=== PATIENT | male | born 1955 | race Caucasian/White ===

== ENCOUNTER 2019-07-08 08:45 | Emergency (ER) | payer OTHER ==
--- OUTSIDE RECORDS SUMMARY | 2019-07-08 09:35 | XMS REPORT | Continuity of Care Document ---
:1955 External Reference #:[id number] Author Name Francisco J Holley M.D. Address [address] [facility] [address] [place] [address] Care Team Providers Name Role Phone HCP given Care Team Information [employer] Unavailable [facility] - Cardiovascular Care Team Information [employer] Coach Disease Michael Galarza MD - Orthopaedic Care Team Information [facility] [employer] - Care Team Information [employer] Coach [phone] Gastroenterology [facility] - Surgery Care Team Information [employer] Coach [phone] Pain Clinic - Pain Medicine Care Team Information [employer] Coach [phone] Problems Active Problems Provider Date Benign essential hypertension Francisco J Holley M.D. Onset: 07/21/2011 Gout Francisco J oHlley M.D. Onset: 07/21/2011 Impaired fasting glycaemia Francisco J Holley M.D. Onset: 01/21/2012 Chronic pain syndrome Francisco J Holley M.D. Onset: 08/30/2012 Idiopathic peripheral autonomic neuropathy Francisco J Holley M.D. Onset: 08/30 Disorder of lipid metabolism Francisco J Holley M.D. Onset: 05/30/2015 Disorder of fatty acid metabolism Francisco J Holley M.D. Onset: 07/08/2015 Essential hypertension Francisco J Holley M.D. Onset: 07/08/2015 History of polyp of colon Francisco J Holley M.D. Onset: 08/01/2017 Social History Type Date Description Comments Sex Unknown Tobacco Use Start: Unknown current cigarette smoker 1ppd; started at age 22 ETOH Use Occasionally consumes alcohol "a couple of beers a week"; "used to drink like hell" until his mid 40s. Tobacco Use Start: Unknown Patient is a current smoker, smokes every day Allergies, Adverse Reactions, Alerts Description No Known Drug Allergies Medications Active Medications SIG Qnty Indications Ordering Date Provider Atorvastatin Calcium Take One Tablet By 30tabs E71.30 Silcoff, 09/08/2015 Mouth Every Day For Dex Marx 40mg Tablets High Cholesterol Fluocinonide apply a thin layer 60gm R21 Silcoff, 07/08/2015 0.05% to affected areas Dex Marx Cream on hands and wrists two times a day as needed for itch Aspirin take one tablet by 30tabs E71.30 Silcoff, 05/30/2015 81mg Tablets mouth every day for Dex Marx DR heart disease prevention; start after urinary tract infection has resolved* Ibuprofen Take One Tablet By 50tabs M25.559 Silcoalice, 03/31/2013 800mg Mouth Three Times A Dex Marx Tablets Day as Needed For Buttock And Hip Pain Fluticasone 2 sprays into each 16units J31.0 Silcoff, 02/27/2013 Propionate nostril once daily Dex Marx 50mcg/Act for nasal Suspension congestion Losartan take one tablet by 30tabs I10 Silcoff, 07/31/2012 Potassium/Hydrochlor mouth in the Dex Marx othiazide morning for high 100-25mg for blood pressure Tablets and kidney protection Oxycodone HCL 1 by mouth every 6 120tabs M25.519 Silshantal, 05/01/2012 5mg hours as needed for Dex Marx Tablets breakthrough pain (fill when appropriate) M25.579 G89.4 Allopurinol take one tablet by 30tabs M10.9 Francisco J Holley, 04/16/2011 300mg Tablets mouth every day to M.DIqra prevent gout Immunizations CPT Code Status Date Vaccine Lot # 89912 Given 01/22/2019 Shingrix Zoster (Shingles) Vaccine (HZV) [id number] Recomb,Subnit,Adjuvanted 38639 Given 07/12/2018 Influenza Virus Vaccine, Quadrivalent, Split, [id number] Preservative Free 83339 Given 05/02/2018 Shingrix Zoster (Shingles) Vaccine (HZV) [id number] Recomb,Subnit,Adjuvanted 01986 Given 05/27/2017 Influenza Virus Vaccine, Quadrivalent, Split, [id number] Preservative Free 69861 Given 09/15/2016 Zostavax [id number] 13675 Given 07/13/2016 Influenza Virus Vaccine, Quadrivalent, Split, [id number] Preservative Free 64321 Given 07/08/2015 Influenza Virus Vaccine, Quadrivalent, Split, [id number] Preservative Free 29589 Given 08/19/2014 Influenza Virus Vaccine, Quadrivalent, Split, [id number] Preservative Free 42835 Given 07/09/2013 Flu, Split Virus 3Yrs [id number] 35104 Given 06/28/2012 Flu, Split Virus 3Yrs [id number] 75647 Given 06/21/2011 Flu, Split Virus 3Yrs [id number] 04524 Given 11/27/2010 Pneumococcal Immunization [id number] 14975 Given 11/27/2010 Adacel or Boostrix, TDaP [id number] 33330 Given 07/17/2010 Flu, Split Virus 3Yrs [id number] Vital Signs Date Vital Result Comment 05/29/2019 9:36am BP Systolic 122 mmHg BP Diastolic 78 mmHg BP Systolic Recheck 128 mmHg R arm sitting BP Diastolic Recheck 70 mmHg R arm sitting Heart Rate 104 /min reg Weight 295.00 lb with shoes 03/26/2019 9:00am BP Systolic 128 mmHg BP Diastolic 78 mmHg Weight 305.00 lb with sandals Results Test Date Facility Test Result H/L Range Note Laboratory test finding 05/29/2019 In House Hemoglobin A1c 6.0 Urine Drug Screen Inhouse 01/22/2019 In House Ua Cocaine - Ua Opiates - Ua Amphetamines - Urine Methanphetamines - Urine Benzodiazepines QN [place] - Urine Oxycodone QL + Procedures Date Code Description Status 11/03/2017 [id number] Colonoscopy Completed Medical Devices Description No Information Available Encounters Type Date Location Provider Dx Diagnosis Office Visit 03/26/2019 Main Office Francisco J Holley G89.4 Chronic pain 8:55a M.D. syndrome Z79.891 USP (current) use of opiate analgesic M10.9 Gout, unspecified I10 Essential (primary) hypertension R73.01 Impaired fasting glucose K59.00 Constipation, unspecified Office Visit 01/22/2019 9:30a Main Office Francisco J Holley G89.4 Chronic pain M.D. 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 05/29/2019 G89.4 Chronic pain syndrome Francisco J Holley M.D. 05/29/2019 Z79.891 terminal block assembler (current) use of opiate analgesic Francisco J Holley M.D. 05/29/2019 M10.9 Gout, unspecified Francisco J Holley M.D. 05/29/2019 I10 Essential (primary) hypertension Francisco J Holley M.D. 05/29/2019 F17.210 Nicotine dependence, cigarettes, Francisco J Holley M.D. 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 unspecified 05/29/2019 Z23 Encounter for immunization Francisco J Holley M.D. 03/26/2019 G89.4 Chronic pain syndrome Francisco J Holley M.D. 03/26/2019 Z79.891 USP (current) use of opiate analgesic Francisco J Holley M.D. 03/26/2019 M10.9 Gout, unspecified Francisco J Holley M.D. 03/26/2019 I10 Essential (primary) hypertension Francisco J Holley M.D. 03/26/2019 R73.01 Impaired fasting glucose Francisco J Holley M.D. 03/26/2019 K59.00 Constipation, unspecified Francisco J Holley M.D. 01/22/2019 G89.4 Chronic pain syndrome Francisco J Holley M.D. 01/22/2019 Z79.891 terminal block assembler (current) use of opiate analgesic Francisco J Holley M.D. 01/22/2019 M10.9 Gout, unspecified Francisco J Holley M.D. 01/22/2019 I10 Essential (primary) hypertension Francisco J Holley M.D. 01/22/2019 R73.01 Impaired fasting glucose Francisco J Holley M.D. 01/22/2019 K59.00 Constipation, unspecified Francisco J Holley M.D. 01/22/2019 E71.30 Disorder of fatty-acid metabolism, Francisco J Holley M.D. unspecified 01/22/2019 F17.210 Nicotine dependence, cigarettes, Francisco J Holley M.D. uncomplicated 01/22/2019 Z23 Encounter for immunization Francisco J Holley M.D. 01/22/2019 Z41.8 Encounter for other procedures for purposes Francisco J Holley M.D. other than remed Plan of Treatment 05/29/2019 - Francisco J Holley M.D.R73.01 Impaired fasting glucoseComments: Congratulated on diet changes and wt loss. A1c slightly better, 6.0% today.G89.4 Chronic pain syndromeFollow up:RTO 2 months recheck chronic problems. Get fasting bloodwork done the week prior.Z79.891 terminal block assembler (current) use of opiate pwzjhunraN88.9 Gout, bqradhlkscoL59 Essential (primary) rblorlhfwczyL89.210 Nicotine dependence, cigarettes, uncomplicatedComments: Briefly discussed importance of smoking cessation. Un fortunately, while he understands it is important, he does not feel ready to try and quit now.E71.30 Disorder of fatty-acid metabolism, [id number] Encounter for immunizationComments:Encouraged flu vaccine wc was accepted. VIS provided. Functional Status Description No Information Available Mental Status Description No Information Available Referrals Refer to Reason for Referral Status Appt Date Pain Clinic Longstanding chronic pain pt. He has been on Patient Declined current dose Fentanyl patches since December 2012. His insurance is now demanding consult by 'pain specialist' willing to confirm that this is appropriate for him at the current dose. Consultation [facility] Dates [place] [phone]
[2019-07-08 09:42] LABS: ABS Basophils 0.1 10^3/ul (0-0.2); ABS Eosinophils 0.1 10^3/ul (0-0.6); ABS Lymphocytes 1.5 10^3/ul (1.0-4.8); ABS Monocytes 0.7 10^3/ul (0-0.8); ABS Neutrophils 8.4 10^3/ul (1.5-7.7); Eosinophil % 1.1 %; Hematocrit 46 % (42-52); Hemoglobin 16.2 g/dL (14.0-18.0); Mean Corpuscular HGB Conc 35 g/dL (31-36); Mean Corpuscular Hemoglobin 30 pg (27-31); Mean Corpuscular Volume 85 fL (80-94); Mean Platelet Volume 8.5 fL (7.4-10.4); Nucleated Red Blood Cells % 0.1; Platelet Count 189 10^3/uL (150-450); Red Blood Count 5.43 10^6 /uL (4.18-5.48); Red Cell Distribution Width 16 % (10-15); White Blood Count 10.9 10^3/uL (3.5-10.8)
[2019-07-08 09:59] LABS: Albumin 4.2 g/dL (3.2-5.2); Albumin/Globulin Ratio 1.5 (1-3); BUN/Creatinine Ratio 18.3 (8-20); C Reactive Protein 12.11 mg/L (<8.01); Calcium 9.3 mg/dL (8.6-10.3); EGFR African American 115.2 (>60); EGFR Non-African American 95.2 (>60); Globulin 2.8 g/dL (2-4); Potassium 3.7 mmol/L (3.5-5.0); Total Bilirubin 0.7 mg/dL (0.2-1.0)
[2019-07-08 12:19] VITALS: BP 111/69
[2019-07-08 12:34] LABS: Urine Appearance Clear; Urine Bilirubin Negative (Negative); Urine Blood Negative (Negative); Urine Color Yellow; Urine Glucose Negative (Negative); Urine Ketones Negative (Negative); Urine Nitrite Negative (Negative); Urine Protein Negative (Negative); Urine Specific Gravity 1.018 (1.010-1.030); Urine Urobilinogen Negative (Negative)
[2019-07-08] MEDS ORDERED: Cyclobenzaprine TAB* 10 MG PO ONE (12:55)
[2019-07-08] MEDS ORDERED: Ketorolac *IM* INJ* 60 MG/2 ML VIAL IM ONE (12:55)
--- NOTE | 2019-07-08 17:32 | ED ---
Back Pain - HPI Summary HPI Summary: Pt. is a 63 y.o male who presents to the ER for worsening lower back pain x several days. Pt. denies any falls or injuries. Pt. notes pain occasionally radiates to his upper back and chest. Pt. currently denies cp or sob. He denies fever, abd. pain, numbness, tingling, or weakness, denies bowel or bladder incontinence or retention. Pt. is rx oxycodone chronically which has not been helping with the pain. Past medical hx of HLD, HTN, obesity, gout. Sxs are moderate in severity. Movement makes sxs worse. Nothing makes sxs better. - History of Current Complaint Chief Complaint: EDFlankPain Stated Complaint: BILAT KIDNEY PAIN PER PT Time Seen by Provider: 07/08/19 09:09 Hx Obtained From: Patient Pain Intensity: 4 Pain Scale Used: 0-10 Numeric - Allergies/Home Medications Allergies/Adverse Reactions: Allergies Allergy/AdvReac Type Severity Reaction Status Date / Time No Known Allergies Allergy Verified 07/08/19 08:54 PMH/Surg Hx/FS Hx/Imm Hx Previously Healthy: Yes Cardiovascular History: Denies: Hx Pacemaker/ICD Psychiatric History: Denies: Hx Panic Disorder - Surgical History Surgery Procedure, Year, and Place: Rt WRIST- ORIF; Rt KNEE DEBRIDEMENT; BILATERAL SHOULDER REPAIR - NO METAL USED Infectious Disease History: No Infectious Disease History: Denies: Traveled Outside the [place] in Last 30 Days - Family History Known Family History: Positive: Non-Contributory - Social History Occupation: Retired Lives: With Family Alcohol Use: None Substance Use Type: Reports: Marijuana Smoking Status (MU): Current Every Day Smoker Review of Systems Constitutional: Negative Eyes: Negative ENT: Negative Cardiovascular: Negative Respiratory: Negative Gastrointestinal: Negative Genitourinary: Negative Positive: Other - low back pain Skin: Negative Neurological: Negative All Other Systems Reviewed And Are Negative: Yes Physical Exam Triage Information Reviewed: Yes Vital Signs On Initial Exam: Initial Vitals Temp Pulse Resp BP Pulse Ox 98.6 F 120 16 149/122 95 07/08/19 08:48 07/08/19 08:48 07/08/19 08:48 07/08/19 08:48 07/08/19 08:48 Vital Signs Reviewed: Yes Appearance: Positive: Well-Appearing - Pt. lying in bed in NAD> Skin: Positive: Warm, Dry Head/Face: Positive: Normal Head/Face Inspection Eyes: Positive: Normal, EOMI Neck: Positive: Supple Respiratory/Lung Sounds: Positive: Clear to Auscultation, Breath Sounds Present Cardiovascular: Positive: Normal, RRR Abdomen Description: Positive: Nontender, Soft. Negative: CVA Tenderness (R), CVA Tenderness (L) Musculoskeletal: Positive: Normal, Strength/ROM Intact, Other - Low midline lumbar and SI joint tenderness. 5/5 strength in bilateral LEs. Neurological: Positive: Normal, CN Intact II-III Psychiatric: Positive: Affect/Mood Appropriate Procedures - Sedation Patient Received Moderate/Deep Sedation with Procedure: No Diagnostics - Vital Signs Vital Signs Temp Pulse Resp BP Pulse Ox 07/08/19 13:17 97.5 F 99 12 111/69 94 07/08/19 13:00 103 13 94 07/08/19 12:08 98 13 111/69 91 07/08/19 12:00 100 17 91 07/08/19 11:37 90 7 118/72 91 07/08/19 11:07 98 19 124/86 95 07/08/19 10:37 94 10 127/82 93 07/08/19 10:07 100 7 121/75 94 07/08/19 10:00 97 8 94 07/08/19 09:37 102 16 126/74 88 07/08/19 09:07 118 20 145/90 93 07/08/19 09:03 120 93 07/08/19 08:48 98.6 F 120 16 149/122 95 - Laboratory Lab Results: Lab Results 07/08/19 07/08/19 07/08/19 Range/Units 09:33 09:33 12:16 WBC 10.9 H (3.5-10.8) 10^3/uL RBC 5.43 (4.18-5.48) 10^6 /uL Hgb 16.2 (14.0-18.0) g/dL Hct 46 (42-52) % MCV 85 (80-94) fL MCH 30 (27-31) pg MCHC 35 (31-36) g/dL RDW 16 H (10-15) % Plt Count 189 (150-450) 10^3/uL MPV 8.5 (7.4-10.4) fL Neut % (Auto) 77.0 % Lymph % (Auto) 14.0 % Sunflower % (Auto) 6.6 % Eos % (Auto) 1.1 % Baso % (Auto) 1.3 % Absolute Neuts (auto) 8.4 H (1.5-7.7) 10^3/ul Absolute Lymphs (auto) 1.5 (1.0-4.8) 10^3/ul Absolute Monos (auto) 0.7 (0-0.8) 10^3/ul Absolute Eos (auto) 0.1 (0-0.6) 10^3/ul Absolute Basos (auto) 0.1 (0-0.2) 10^3/ul Absolute Nucleated RBC 0.0 10^3/ul Nucleated RBC % 0.1 Sodium 131 L (135-145) mmol/L Potassium 3.7 (3.5-5.0) mmol/L Chloride 98 L (101-111) mmol/L Carbon Dioxide 26 (22-32) mmol/L Anion Gap 7 (2-11) mmol/L BUN 15 (6-24) mg/dL Creatinine 0.82 (0.67-1.17) mg/dL Est GFR ( Amer) 115.2 (>60) Est GFR (Non-Af Amer) 95.2 (>60) BUN/Creatinine Ratio 18.3 (8-20) Glucose 182 H (70-100) mg/dL Calcium 9.3 (8.6-10.3) mg/dL Total Bilirubin 0.70 (0.2-1.0) mg/dL AST 26 (13-39) U/L ALT 27 (7-52) U/L Alkaline Phosphatase 216 H (34-104) U/L Troponin I 0.00 (<0.04) ng/mL C-Reactive Protein 12.11 H (<8.01) mg/L Total Protein 7.0 (6.4-8.9) g/dL Albumin 4.2 (3.2-5.2) g/dL Globulin 2.8 (2-4) g/dL Albumin/Globulin Ratio 1.5 (1-3) Urine Color Yellow Urine Appearance Clear Urine pH 6.0 (5-9) Ur Specific [place] 1.018 (1.010-1.030) Urine Protein Negative (Negative) Urine Ketones Negative (Negative) Urine Blood Negative (Negative) Urine Nitrate Negative (Negative) Urine Bilirubin Negative (Negative) Urine Urobilinogen Negative (Negative) Ur Leukocyte Esterase Negative (Negative) Urine Glucose Negative (Negative) Result Diagrams: 07/08/19 09:33 07/08/19 09:33 Lab Statement: Any lab studies that have been ordered have been reviewed, and results considered in the medical decision making process. Back Pain Course/Dx - Course Course Of Treatment: Pt. presenting with back pain. BP and HR initially elevated. Given occassional radiating pain and past medical hx, cardiac workup obtained. ECG done at 0934 shows a sinus tachycardia of 100bpm, normal axis, no ST elevation or depression, similar to prior tracing. Labs show minimally elevated WBC, glucose, alk phos and na of 131. U/A negative for infection. CXR and lumbar xray negative for acute findings per radiology. On re-exam pt. now notes that he moved a heavy glass door the day before back pain started. Suspect muscular in nature. Pt. give a dose of toradol and flexeril in ED. Rx for flxeril given. Can continue pain medications. To avoid heavy lifting. Apply warm compress. Close fu with pcp and return to er if sxs change or worsen. Pt. understands and agrees with plan. - Diagnoses Differential Diagnosis/HQI/PQRI: Positive: Aneurysm, Arthritis, Fracture, Herniated Disc, Renal Colic, Strain, Sprain Provider Diagnoses: Lumbar strain Discharge ED - Sign-Out/Discharge Documenting (check all that apply): Patient Departure - Discharge Plan Condition: Good Disposition: HOME Prescriptions: Cyclobenzaprine TAB* [Flexeril 10 MG TAB*] 10 mg PO TID PRN #12 tab PRN Reason: Pain - Moderate Patient Education Materials: Low Back Strain (ED) Referrals: Francisco J Holley MD [Primary Care Provider] - Additional Instructions: Schedule a follow up appointment with your PCP within 2-3 days Can continue home medications as directed Apply warm compresses to low back Muscle relaxer as directed Return to ER if symptoms change or worsen - Billing Disposition and Condition Condition: GOOD Disposition: Home
== END 2019-07-08 13:14 | disposition home or self-care (01) ==
LOC: ED 08:45
DX: S39.012A Strain of muscle, fascia and tendon of lower back, initial encounter (principal); X58.XXXA Exposure to other specified factors, initial encounter; Y92.9 Unspecified place or not applicable; M51.35 Other intervertebral disc degeneration, thoracolumbar region; F17.200 Nicotine dependence, unspecified, uncomplicated; E78.5 Hyperlipidemia, unspecified; I10 Essential (primary) hypertension; Z79.891 Long term (current) use of opiate analgesic
CPT/HCPCS: 36415; 71045; 72110; 80053; 81003; 84484; 85025; 86140; 93005; 96372; 99283; A9270-GY; J1885

== ENCOUNTER 2019-11-08 08:08 | Emergency (ER) | payer OTHER ==
--- OUTSIDE RECORDS SUMMARY | 2019-11-08 08:39 | XMS REPORT | Continuity of Care Document ---
:1955 External Reference #:[id number] Author Name Francisco J Holley M.D. Address [address] [facility] [address] [place] [address] Care Team Providers Name Role Phone HCP given Care Team Information Plant Protection Officer Unavailable [facility] - Cardiovascular Care Team Information Plant Protection Officer [phone] Disease Michael Galarza MD - Orthopaedic Care Team Information Plant Protection Officer [facility] - Care Team Information Plant Protection Officer [phone] Gastroenterology [facility] - Surgery Care Team Information Plant Protection Officer [phone] Pain Clinic - Pain Medicine Care Team Information Plant Protection Officer [phone] Problems Active Problems Provider Date Benign essential hypertension Francisco J Holley M.D. Onset: 07/21/2011 Gout Francisco J Holley M.D. Onset: 07/21/2011 Impaired fasting glycaemia Francisco [...] Medications SIG Qnty Indications Ordering Date Provider Cyclobenzaprine HCL 1 by mouth at 30tabs M54.5 Francisco J Holley, 10/09/2019 10mg night if needed M.D. Tablets for back pain M54.9 Atorvastatin Calcium take one tablet by 30tabs E71.30 Francisco J Holley, mouth every day for M.D. 40mg Tablets high cholesterol Fluocinonide apply a thin layer to 60gm R21 Francisco J Holley, 07/08/2015 0.05% affected areas on M.D. Cream hands and wrists two times a day as needed for itch Ibuprofen take one tablet by 50tabs M25.559 Francisco J Holley, 03/31/2013 800mg Tablets mouth three times a M.D. day as needed for buttock and hip pain Fluticasone 2 sprays into each 16units J31.0 Francisco J Holley, 02/27/2013 Propionate nostril once daily M.D. 50mcg/Act for nasal congestion Suspension Losartan take one tablet by 30tabs I10 Francisco J Holley, 07/31/2012 Potassium/Hydrochloro mouth in the morning M.D. thiazide for high for blood 100-25mg pressure and kidney Tablets protection Oxycodone HCL 1 by mouth every 6 120tabs M25.519 Francisco J Holley, 2011 5mg hours as needed for M.D. Tablets breakthrough pain; rx due 10/22/19 M25.579 G89.4 Allopurinol take one tablet by 30tabs M10.9 Francisco J Holley, 04/16/2011 300mg Tablets mouth every day to M.D. prevent gout History Medications Cyclobenzaprine HCL 1 tablet 3x/day 12tabs M54.5 Unknown 07/08/2019 - 10mg Tablets as needed for 10/09/2019 back pain M54.9 Immunizations CPT Code Status Date Vaccine Lot # [id number] Given 05/29/2019 Influenza Virus Vaccine, Quadrivalent, Split, [id number] Preservative Free 97771 Given 01/22/2019 Shingrix Zoster (Shingles) Vaccine (HZV) [id number] Recomb,Subnit,Adjuvanted 56046 Given 07/12/2018 Influenza Virus Vaccine, Quadrivalent, Split, [id number] Preservative Free 42668 Given 05/02/2018 Shingrix Zoster (Shingles) Vaccine (HZV) [id number] Recomb,Subnit,Adjuvanted 27192 Given 05/27/2017 Influenza Virus Vaccine, Quadrivalent, Split, [id number] Preservative Free 36141 Given 09/15/2016 Zostavax [id number] 19432 Given 07/13/2016 Influenza Virus Vaccine, Quadrivalent, Split, [id number] Preservative Free 55649 Given 07/08/2015 Influenza Virus Vaccine, Quadrivalent, Split, [id number] Preservative Free 99265 Given 08/19/2014 Influenza Virus Vaccine, Quadrivalent, Split, [id number] Preservative Free 90997 Given 07/09/2013 Flu, Split Virus 3Yrs [id number] 88296 Given 06/28/2012 Flu, Split Virus 3Yrs [id number] 73968 Given 06/21/2011 Flu, Split Virus 3Yrs [id number] 90791 Given 11/27/2010 Pneumococcal Immunization [id number] 19825 Given 11/27/2010 Adacel or Boostrix, TDaP [id number] 03028 Given 07/17/2010 Flu, Split Virus 3Yrs [id number] Vital Signs Date Vital Result Comment 10/09/2019 10:05am BP Systolic 122 mmHg BP Diastolic 78 mmHg Height 68 inches 5'8" Weight 266.00 lb BMI (Body Mass Index) 40.4 kg/m2 07/30/2019 9:27am BP Systolic 132 mmHg BP Diastolic 80 mmHg Weight 284.00 lb w/shoes Results Test Acquired Date Facility Test Result H/L Range Note Laboratory test 07/16/2019 [facility] Alt (SGPT) 28 U/L Normal 7-52 1, 2 finding [phone] Lipid Profile 07/16/2019 [facility] Triglycerides 118 mg/dL 3 (Trig/Chol/HDL) [phone] Cholesterol 130 mg/dL 4 HDL Cholesterol 28.8 mg/dL 5 LDL Cholesterol 78 mg/dL 6 Laboratory test 07/16/2019 [facility] Uric Acid 5.9 mg/dL Normal 4.4- 7.6 7 finding [phone] Basic Metabolic Panel 07/16/2019 [facility] Sodium 134 mmol/L Low 135 -145 [phone] Potassium 4.0 mmol/L Normal 3.5-5.0 Chloride 100 mmol/L Low 101-111 Co2 Carbon Dioxide 26 mmol/L Normal 22-32 Anion Gap 8 mmol/L Normal 2-11 Glucose 111 mg/dL High 70-100 Blood Urea Nitrogen 14 mg/dL Normal 6-24 Creatinine 0.83 mg/dL Normal 0.67-1.17 BUN/Creatinine Ratio 16.9 Normal 8-20 Calcium 9.4 mg/dL Normal 8.6-10.3 Egfr Non- 93.9 >60 Egfr 113.6 >60 8 Urinalysis Profile 07/08/2019 [facility] Urine Color Yellow [phone] Urine Appearance Clear Urine Specific [place] 1.018 Normal 1.010-1.030 Urine pH 6.0 Normal 5-9 Urine Urobilinogen Negative Negative Urine Ketones Negative Negative Urine Protein Negative Negative Urine Leukocytes Negative Negative Urine Blood Negative Negative Urine Nitrite Negative Negative Urine Bilirubin Negative Negative Urine Glucose Negative Negative CBC Auto Diff 07/08/2019 [facility] White Blood 10.9 10^3/uL High 3.5 -10.8 [phone] Count Red Blood Count 5.43 10^6/uL Normal 4.18-5.48 Hemoglobin 16.2 g/dL Normal 14.0-18.0 Hematocrit 46 % Normal 42-52 Mean Corpuscular Volume 85 fL Normal 80-94 Mean Corpuscular Hemoglobin 30 pg Normal 27-31 Mean Corpuscular HGB Conc 35 g/dL Normal 31-36 Red Cell Distribution Width 16 % High 10-15 Platelet Count 189 10^3/uL Normal 150-450 Mean Platelet Volume 8.5 fL Normal 7.4-10.4 Abs Neutrophils 8.4 10^3/uL High 1.5-7.7 Abs Lymphocytes 1.5 10^3/uL Normal 1.0-4.8 Abs Monocytes 0.7 10^3/uL Normal 0-0.8 Abs Eosinophils 0.1 10^3/uL Normal 0-0.6 Abs Basophils 0.1 10^3/uL Normal 0-0.2 Abs Nucleated RBC 0.0 10^3/uL Granulocyte % 77.0 % Lymphocyte % 14.0 % Monocyte % 6.6 % Eosinophil % 1.1 % Basophil % 1.3 % Nucleated Red Blood Cells % 0.1 Comp Metabolic Panel 07/08/2019 [facility] Sodium 131 mmol/L Low 135- 145 [phone] Potassium 3.7 mmol/L Normal 3.5-5.0 Chloride 98 mmol/L Low 101-111 Co2 Carbon Dioxide 26 mmol/L Normal 22-32 Anion Gap 7 mmol/L Normal 2-11 Glucose 182 mg/dL High 70-100 Blood Urea Nitrogen 15 mg/dL Normal 6-24 Creatinine 0.82 mg/dL Normal 0.67-1.17 BUN/Creatinine Ratio 18.3 Normal 8-20 Calcium 9.3 mg/dL Normal 8.6-10.3 Total Protein 7.0 g/dL Normal 6.4-8.9 Albumin 4.2 g/dL Normal 3.2-5.2 Globulin 2.8 g/dL Normal 2-4 Albumin/Globulin Ratio 1.5 Normal 1-3 Total Bilirubin 0.70 mg/dL Normal 0.2-1.0 Alkaline Phosphatase 216 U/L High 34-104 Alt 27 U/L Normal 7-52 Ast 26 U/L Normal 13-39 Egfr Non- 95.2 >60 Egfr 115.2 >60 9 Laboratory test 07/08/2019 [facility] C Reactive 12.11 mg/L High < 8.01 finding [phone] Protein Troponin-I (TnI) 0.00 ng/mL <0.04 10 Laboratory test finding 05/29/2019 In House Hemoglobin A1c 6.0 1 FASTING 12 HOUR 2 FASTING 12 HOUR 3 Desirable: <150 Borderline High: 150-199 High: 200-499 Very High: >500 4 Desirable: <200 Borderline High: 200-239 High: >239 5 Low: <40 Desirable: 40-60 High: >60 6 Desirable: <100 Near Optimal: 100-129 Borderline High: 130-159 High: 160-189 Very High: >189 7 FASTING 12 HOUR 8 Because ethnic data is not always readily available, this report includes an eGFR for both -Americans and non- Americans. The National Kidney Disease Education Program (NKDEP) does not endorse the use of the MDRD equation for patients that are not between the ages of 18 and 70, are , have extremes of body size, muscle mass, or nutritional status, or are non- or non-. According to the National Kidney Foundation, irrespective of diagnosis, the stage of the disease is based on the level of kidney function: Stage Description GFR(mL/min/1.73 m(2)) 1 Kidney damage with normal or decreased GFR 90 2 Kidney damage with mild decrease in GFR 60-89 3 Moderate decrease in GFR 30-59 4 Severe decrease in GFR 15-29 5 Kidney failure <15 (or dialysis) 9 Because ethnic data is not always readily available, this report includes an eGFR for both -Americans and non- Americans. The National Kidney Disease Education Program (NKDEP) does not endorse the use of the MDRD equation for patients that are not between the ages of 18 and 70, are , have extremes of body size, muscle mass, or nutritional status, or are non- or non-. According to the National Kidney Foundation, irrespective of diagnosis, the stage of the disease is based on the level of kidney function: Stage Description GFR(mL/min/1.73 m(2)) 1 Kidney damage with normal or decreased GFR 90 2 Kidney damage with mild decrease in GFR 60-89 3 Moderate decrease in GFR 30-59 4 Severe decrease in GFR 15-29 5 Kidney failure <15 (or dialysis) 10 Troponin-I testing on Plasma Separator Tubes (PST) has a known false positive rate of 0.20-0.40%. All positive troponins reflex immediately to secondary confirmatory testing. Using the Vol[employer]ix DxI 800 Access Immunoassay systems, the 99th percentile upper reference limit was demonstrated to be < 0.03 ng/mL. Procedures Date Code Description Status 11/03/2017 19703280 Colonoscopy Completed Medical Devices Description No Information Available Encounters Type Date Location Provider Dx Diagnosis Office Visit 10/09/2019 Main Office Francisco J Holley, I10 Essential ( primary) 10:00a M.D. hypertension R73.01 Impaired fasting glucose G89.4 Chronic pain syndrome Z79.891 [facility] (current) use of opiate analgesic M10.9 Gout, unspecified M54.5 Low back pain Z68.41 Body mass index (BMI) 40.0-44.9, adult Office Visit 07/30/2019 9:30a Main Office Francisco J Holley R73.01 Impaired fasting M.D. 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 M54.5 Low back pain M54.9 Dorsalgia, unspecified Z68.41 Body mass index (BMI) 40.0-44.9, adult Office Visit 05/29/2019 9:30a Main Office Francisco J Holley R73.01 Impaired fasting M.D. 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 10/09/2019 R73.01 Impaired fasting glucose Francisco J Holley M.D. 10/09/2019 G89.4 Chronic pain syndrome Francisco J Holley M.D. 10/09/2019 Z79.891 [facility] (current) use of opiate analgesic Francisco J Holley M.D. 10/09/2019 M10.9 Gout, unspecified Francisco J Holley M.D. 10/09/2019 M54.5 Low back pain Francisco J Holley M.D. 10/09/2019 Z68.41 Body mass index (BMI) 40.0-44.9, adult Francisco J Holley M.D. 07/30/2019 R73.01 Impaired fasting glucose Francisco J Holley M.D. 07/30/2019 G89.4 Chronic pain syndrome Francisco J Holley M.D. 07/30/2019 Z79.891 [facility] (current) use of opiate analgesic Francisco J Holley M.D. 07/30/2019 M10.9 Gout, unspecified Francisco J Holley M.D. 07/30/2019 I10 Essential (primary) hypertension Francisco J Holley M.D. 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 unspecified 07/11/2019 M54.5 Low back pain Francisco J Holley M.D. 07/11/2019 M54.9 Dorsalgia, fabiified Francisco J Holley M.D. 07/11/2019 Z68.41 Body mass index (BMI) 40.0-44.9, adult Francisco J Holley M.D. 05/29/2019 R73.01 Impaired fasting glucose Francisco J Holley M.D. 05/29/2019 G89.4 Chronic pain syndrome Francisco J Holley M.D. 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 05/29/2019 M10.9 Gout, unspecified Francisco J Holley M.D. 05/29/2019 I10 Essential (primary) hypertension Francisco J Holley M.D. 05/29/2019 F17.210 Nicotine dependence, cigarettes, Francisco J Holley M.D. 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 unspecified 05/29/2019 Z23 Encounter for immunization Francisco J Holley M.D. 05/29/2019 Z41.8 Encounter for other procedures for purposes Francisco J Holley M.D. other than remedying health state Plan of Treatment 10/09/2019 - Francisco J Holley M.D.I10 Essential (primary) hypertensionNew Orders :Ua w/ micro, inhouse, Ordered: 10/09/19R73.01 Impaired fasting glucoseComments: Congratulated on his continued diet changes and wt loss. Continue w/ improved lifestyle, lose more weight. Will repeat A1c at next ovG89.4 Chronic pain syndromeFollow up:RTO 2 months recheck chronic problems w/ A1c, EKGZ79.891 [facility] (current) use of opiate updmglhmiV48.9 Gout, kdzdoiltraoF12.5 Low back painNew Medication:Cyclobenzaprine HCL 10 mg - 1 by mouth at night if needed for back painZ68.41 Body mass index (BMI) 40.0-44.9, adult Functional Status Description No Information Available Mental Status Description No Information Available Referrals Description No Information Available
--- NOTE | 2019-11-08 08:44 | ED ---
Back Pain - HPI Summary HPI Summary: Patient is a 64 y/o M presenting to the ED for a chief complaint for lower back pain that worsened in the last 3 days. Patient notes constipation, decreased sleep due to the pain, and decreased appetite. He notes a 60 pound weight loss since December 2018, at which time he reduced his sugar intake. Patient denies bilateral LE weakness. No aggravating or alleviating factors are reported. Patient states that in the fall of 2018, his landlord was installing a sliding glass door, and the patient attempted to lift the door. Two days after lifting the door, patient began to experience lower back pain for which he was seen at [facility]. At that time, he had imaging completed that showed arthritis. He denies any additional back injury. PMHx is significant for gout and rheumatoid arthritis. Patient takes 5 mg of oxycodone, and previously used fentanyl patches , last used in December 2018, for his rheumatoid arthritis. - History of Current Complaint Chief Complaint: EDBackInjuryPain Stated Complaint: BACK PAIN Time Seen by Provider: 11/08/19 08:37 Hx Obtained From: Patient Onset/Duration: Gradual Onset, Lasting Days - 3 days, Still Present Onset/Duration: Atraumatic, Still Present Timing: Constant Severity Initially: Severe Severity Currently: Severe Pain Intensity: 10 Pain Scale Used: 0-10 Numeric Aggravating Symptom(s): Nothing Alleviating Symptom(s): Nothing Associated Signs And Symptoms: Positive: Weight Loss - 60 pounds. Negative: Weakness - Bilateral LE Related History: Previous Back Injury - Allergies/Home Medications Allergies/Adverse Reactions: Allergies Allergy/AdvReac Type Severity Reaction Status Date / Time No Known Allergies Allergy Verified 11/08/19 08:29 Home Medications: Home Medications Cyclobenzaprine TAB* [Flexeril 10 MG TAB*] 10 mg PO QPM PRN 11/08/19 [History Confirmed 11/08/19] PMH/Surg Hx/FS Hx/Imm Hx Previously Healthy: Yes Cardiovascular History: Denies: Hx Pacemaker/ICD Musculoskeletal History: Reports: Hx Rheumatoid Arthritis, Hx Gout Sensory History: Denies: Hx Legally Blind, Hx Deafness Opthamlomology History: Denies: Hx Legally Blind EENT History: Denies: Hx Deafness Psychiatric History: Denies: Hx Panic Disorder - Surgical History Surgical History: Yes Surgery Procedure, Year, and Place: Rt WRIST- ORIF; Rt KNEE DEBRIDEMENT; BILATERAL SHOULDER REPAIR - NO METAL USED Infectious Disease History: No Infectious Disease History: Denies: Traveled Outside the [place] in Last 30 Days - Family History Known Family History: Negative: Blood Disorder - Social History Occupation: Unemployed Alcohol Use: None Hx Substance Use: Yes Substance Use Type: Reports: Marijuana Hx Tobacco Use: Yes Smoking Status (MU): Current Every Day Smoker Review of Systems Positive: Other - Positive 60 pound weight loss Positive: Other - Positive constipation Positive: Myalgia - Lower back Negative: Weakness - Bilateral LE Psychological: Other - Positive decreased sleep due to back pain All Other Systems Reviewed And Are Negative: Yes Physical Exam - Summary Physical Exam Summary: Appearance: The patient is well-nourished in no acute distress and in no acute pain. Skin: The skin is warm and dry, and skin color reflects adequate perfusion. HEENT: The head is normocephalic and atraumatic. The pupils are equal and reactive. The conjunctivae are clear and without drainage. Nares are patent and without drainage. Mouth reveals moist mucous membranes, and the throat is without erythema and exudate. The external ears are intact. The ear canals are patent and without drainage. The tympanic membranes are intact. Neck: The neck is supple with full range of motion and non-tender. There are no carotid bruits. There is no neck vein distension. Respiratory: Chest is non-tender. Lungs are clear to auscultation and breath sounds are symmetrical and equal. Cardiovascular: Heart is regular rhythm. There is no murmur or rub auscultated. There is no peripheral edema and pulses are symmetrical and equal. Tachycardic. Abdomen: The abdomen is soft and non-tender. There are normal bowel sounds heard in all four quadrants and there is no organomegaly palpated. Musculoskeletal: Extremities are non-tender with full range of motion. There is good capillary refill. There is no peripheral edema or calf tenderness elicited. Tenderness in the para-lumbar region, negative straight leg raise. Neurological: Patient is alert and oriented to person, place and time. The patient has symmetrical motor strength in all four extremities. Cranial nerves are grossly intact. Deep tendon reflexes are symmetrical and equal in all four extremities. Psychiatric: The patient has an appropriate affect and does not exhibit any anxiety or depression. Triage Information Reviewed: Yes Vital Signs On Initial Exam: Initial Vitals Temp Pulse Resp BP Pulse Ox 97.8 F 114 20 127/86 97 11/08/19 08:25 11/08/19 08:25 11/08/19 08:25 11/08/19 08:25 11/08/19 08:25 Vital Signs Reviewed: Yes Procedures - Sedation Patient Received Moderate/Deep Sedation with Procedure: No Diagnostics - Vital Signs Vital Signs Temp Pulse Resp BP Pulse Ox 11/08/19 08:25 97.8 F 114 20 127/86 97 - Laboratory Result Diagrams: 11/08/19 09:14 11/08/19 09:14 Lab Statement: Any lab studies that have been ordered have been reviewed, and results considered in the medical decision making process. - Ultrasound Gallbladder US Ultrasound Interpretation Completed By: Radiologist Summary of Ultrasound Findings: Gallbladder US IMPRESSION: 1. CHOLELITHIASIS WITHOUT EVIDENCE FOR ACUTE CHOLECYSTITIS. 2. MILD HEPATOMEGALY AND FINDINGS SUGGESTIVE OF FATTY INFILTRATION OF THE LIVER. Reviewed by Dr. Daily. - EKG 09:34 Cardiac Rate: Tachycardia - 103 BPM EKG Rhythm: Sinus Tachycardia ST Segment: Normal Ectopy: None Summary of EKG Findings: EKG at 09:34 shows 103 BPM with sinus tachycardia, normal ST, no ectopy, no STEMI. Unchanged from prior EKG on 07/08/19. Reviewed and interpreted by Dr. Daily. Back Pain Course/Dx - Course Course Of Treatment: Mr. Currie came in complaining of an exacerbation of his chronic low back pain. He normally takes oxycodone and Flexeril at home. He denies any weakness of his legs or change in bowel or bladder habits. His exam on arrival was remarkable only for some paralumbar tenderness. He was nontoxic in appearance but quite tachycardic on arrival. Labs were obtained and records reviewed and his heart rate normalized at about 100. This is about worse heart rate runs on old records. Labs included delayed troponin were unremarkable and I recommended a steroid burst for his back pain and follow-up with his PCP. - Diagnoses Provider Diagnoses: Low back strain Discharge ED - Sign-Out/Discharge Documenting (check all that apply): Patient Departure - Discharge - Discharge Plan Condition: Stable Disposition: HOME Prescriptions: predniSONE [Prednisone 20 MG TAB] 20 mg PO BID #10 tablet Patient Education Materials: Low Back Strain (ED) Referrals: Francisco J Holley MD [Primary Care Provider] - Additional Instructions: RETURN TO THE EMERGENCY DEPARTMENT FOR CHANGING OR WORSENING SYMPTOMS. Follow up with your primary care physician in 2-3 days. - Billing Disposition and Condition Condition: STABLE Disposition: Home - Attestation Statements Document Initiated by Kalyn: Yes Documenting Scribe: Shoshana Flaherty Provider For Whom Kalyn is Documenting (Include Credential): Richie Daily MD Scribe Attestation: Shoshana Joy, scribed for Richie Daily MD on 11/08/19 at 1727. Scribe Documentation Reviewed: Yes Provider Attestation: The documentation as recorded by the Shoshana villagomez accurately reflects the service I personally performed and the decisions made by me, Richie Daily MD Status of Scribe Document: Viewed
[2019-11-08 09:21] LABS: ABS Basophils 0.1 10^3/ul (0-0.2); ABS Eosinophils 0.1 10^3/ul (0-0.6); ABS Monocytes 0.4 10^3/ul (0-0.8); ABS Neutrophils 5.3 10^3/ul (1.5-7.7); Eosinophil % 0.8 %; Hematocrit 35 % (42-52); Hemoglobin 12.4 g/dL (14.0-18.0); Lymphocyte % 14.2 %; Mean Corpuscular HGB Conc 35 g/dL (31-36); Mean Corpuscular Hemoglobin 29 pg (27-31); Mean Corpuscular Volume 82 fL (80-94); Mean Platelet Volume 7.1 fL (7.4-10.4); Nucleated Red Blood Cells % 0.1; Platelet Count 149 10^3/uL (150-450); Red Blood Count 4.26 10^6 /uL (4.18-5.48); Red Cell Distribution Width 18 % (10-15); White Blood Count 6.9 10^3/uL (3.5-10.8)
[2019-11-08 09:46] LABS: Albumin 3.9 g/dL (3.2-5.2); Albumin/Globulin Ratio 1.1 (1-3); BUN/Creatinine Ratio 21.6 (8-20); Calcium 9.4 mg/dL (8.6-10.3); EGFR African American 129.3 (>60); EGFR Non-African American 106.8 (>60); Globulin 3.6 g/dL (2-4); Potassium 3.3 mmol/L (3.5-5.0); Total Protein 7.5 g/dL (6.4-8.9)
[2019-11-08 09:46] LABS: Urine Appearance Clear; Urine Bilirubin Negative (Negative); Urine Blood Negative (Negative); Urine Color Yellow; Urine Glucose Negative (Negative); Urine Ketones Negative (Negative); Urine Nitrite Negative (Negative); Urine Protein Negative (Negative); Urine Specific Gravity 1.015 (1.010-1.030); Urine Urobilinogen Positive (Negative)
[2019-11-08 09:47] LABS: Troponin I 0.01 ng/mL (<0.03)
[2019-11-08] MEDS ORDERED: Ketorolac INJ* 30 MG/ML 1 ML VIAL IM ONE (13:11)
[2019-11-08 13:48] VITALS: BP 117/93
== END 2019-11-08 13:47 | disposition home or self-care (01) ==
LOC: ED 08:08
DX: S39.012A Strain of muscle, fascia and tendon of lower back, initial encounter (principal); X58.XXXA Exposure to other specified factors, initial encounter; K59.00 Constipation, unspecified; Y92.9 Unspecified place or not applicable; F17.210 Nicotine dependence, cigarettes, uncomplicated; Z79.899 Other long term (current) drug therapy
CPT/HCPCS: 36415; 76705; 80053; 81003; 84484; 85025; 93005; 96372; 99283; J1885

== ENCOUNTER 2019-11-18 07:19 | Emergency (ER) | payer OTHER ==
[2019-11-18] MEDS ORDERED: Albuterol 2.5 MG/3 ML NEB.SOL* (0.083%) INH ONE (07:32)
--- NOTE | 2019-11-18 07:33 | ED ---
HPI Chest Pain - HPI Summary HPI Summary: Patient is a 64 y/o M presenting to the ED for a chief complaint of constant left anterior chest pain that radiates to the back for the last 3 days. Patient describes the chest pain as a tightness sensation. He reports cough, bilateral LE edema, and shortness of breath. He also reports weight loss since December 2018. Patient denies fever. The chest pain worsens with movement, but no alleviating factors are noted. One week ago, patient was seen at [facility] for chronic back pain he has had since a back injury while moving a sliding glass door in Fall 2018. Patient admits tobacco use for the last 42 years, using 1 pack per day, and marijuana use, but he denies alcohol use. PMHx is significant for HTN and HLD for which he takes medication. He denies a history of COPD, NM, or other cardiac problems. FMHx is significant for NM in his father, which he believes occurred when his father was 63-65 y/o. Medications reviewed. Allergies noted. - History of Current Complaint Chief Complaint: EDChestWallPain Time Seen by Provider: 11/18/19 07:25 Hx Obtained From: Patient Onset/Duration: Atraumatic, Still Present Timing: Constant, Lasting Days - 3 days Initial Severity: Severe Current Severity: Severe Pain Intensity: 8 Pain Scale Used: 0-10 Numeric Chest Pain Location: Left Anterior Chest Pain Radiates: Yes Chest Pain Radiates To:: Back Character: Tightness Aggravating Factor(s): Movement Alleviating Factor(s): Nothing Associated Signs and Symptoms: Positive: Chest Pain, Shortness of Breath, Swelling - Bilateral LE, Cough. Negative: Fever - Allergy/Home Medications Allergies/Adverse Reactions: Allergies Allergy/AdvReac Type Severity Reaction Status Date / Time No Known Allergies Allergy Verified 11/18/19 07:24 Home Medications: Home Medications Allopurinol TAB* [Zyloprim 300 MG TAB*] 300 mg PO DAILY 09/02/14 [History Confirmed 11/18/19] Ibuprofen TAB* [Advil TAB*] 800 mg PO TID PRN 09/02/14 [History Confirmed ] Losartan/Hydrochlorothiazide [Losartan Potassium/Hydroc 100-25 mg] 1 tab PO DAILY 09/02/14 [History Confirmed 11/18/19] Atorvastatin* [Lipitor*] 40 mg PO DAILY 10/31/17 [History Confirmed 11/18/19] Fluocinonide 0.05% CM(NF) [Lidex 0.05% CREAM(NF)] 1 applic TOPICAL DAILY PRN 02/10 [History Confirmed 11/18/19] Fluticasone NASAL SPRAY 50MCG* [Flonase NASAL SPRAY 50MCG*] 2 spray BOTH NARES DAILY 10/31/17 [History Confirmed 11/18/19] Oxycodone HCl 5 mg PO Q6H PRN 10/31/17 [History Confirmed 11/18/19] Cyclobenzaprine TAB* [Flexeril 10 MG TAB*] 10 mg PO QPM PRN 11/08/19 [History Confirmed 11/18/19] traMADol TAB* [Ultram*] 50 mg PO Q6HR PRN #20 tab MDD 4 tablets 11/18/19 [Rx] PMH/Surg Hx/FS Hx/Imm Hx Previously Healthy: Yes Cardiovascular History: Reports: Hx Hypercholesterolemia, Hx Hypertension Denies: Hx Myocardial Infarction, Hx Pacemaker/ICD Respiratory History: Denies: Hx Chronic Obstructive Pulmonary Disease (COPD) Musculoskeletal History: Reports: Hx Rheumatoid Arthritis, Hx Gout Sensory History: Denies: Hx Legally Blind, Hx Deafness Opthamlomology History: Denies: Hx Legally Blind EENT History: Denies: Hx Deafness Psychiatric History: Denies: Hx Panic Disorder - Surgical History Surgical History: Yes Surgery Procedure, Year, and Place: Rt WRIST- ORIF; Rt KNEE DEBRIDEMENT; BILATERAL SHOULDER REPAIR - NO METAL USED Infectious Disease History: No Infectious Disease History: Denies: Traveled Outside the [place] in Last 30 Days - Family History Known Family History: Positive: Cardiac Disease - [place] in father Negative: Blood Disorder - Social History Occupation: Unemployed Alcohol Use: None Hx Substance Use: Yes Substance Use Type: Reports: Marijuana Hx Tobacco Use: Yes Smoking Status (MU): Heavy Every Day Tobacco Smoker Type: Cigarettes Amount Used/How Often: 1 ppd for 42 years Review of Systems Positive: Other - Positive weight loss. Negative: Fever Positive: Chest Pain - Left anterior Positive: Shortness Of Breath, Cough Positive: Myalgia - Back that radiates from the chest, Edema - Bilateral LE All Other Systems Reviewed And Are Negative: Yes Physical Exam - Summary Physical Exam Summary: Constitutional: Well-developed, Morbidly Obese, Alert. (-) Distressed Skin: Warm, Dry HENT: Normocephalic; Atraumatic Eyes: Conjunctiva normal Neck: Musculoskeletal ROM normal neck. (-) JVD, (-) Stridor, (-) Tracheal deviation Cardio: Rhythm regular, rate normal, Heart sounds normal; Intact distal pulses; Radial pulses are 2+ and symmetric. (-) Murmur Pulmonary/Chest wall: Effort normal. (-) Respiratory distress, (-) Rales. Breathing shallow breaths, mild expiratory wheezes at the bases. Abd: Soft, (-) tenderness, (-) Distension, (-) Guarding, (-) Rebound Musculoskeletal: No peripheral edema. Good pulses bilaterally in radius, No calf tenderness, No venous cords, No pain with dorsiflexion of foot. Lymph: (-) Cervical adenopathy Neuro: Alert, Oriented x3 Psych: Mood and affect Normal Triage Information Reviewed: Yes Vital Signs On Initial Exam: Initial Vitals Temp Pulse Resp BP Pulse Ox 98.8 F 128 19 139/90 97 11/18/19 07:22 11/18/19 07:22 11/18/19 07:22 11/18/19 07:22 11/18/19 07:22 Vital Signs Reviewed: Yes Procedures - Sedation Patient Received Moderate/Deep Sedation with Procedure: No Diagnostics - Vital Signs Vital Signs Temp Pulse Resp BP Pulse Ox 11/18/19 07:22 98.8 F 128 19 139/90 97 - Laboratory Result Diagrams: 11/18/19 07:37 11/18/19 07:37 Lab Statement: Any lab studies that have been ordered have been reviewed, and results considered in the medical decision making process. - Radiology Chest X-ray Radiology Interpretation Completed By: Radiologist Summary of Radiographic Findings: Chest X-ray IMPRESSION: . Reviewed by Dr. Barron. - CT Chest/Abdomen/Pelvis CT CT Interpretation Completed By: Radiologist Summary of CT Findings: Chest/Abdomen/Pelvis CT IMPRESSION: 1. NO PULMONARY ARTERIAL FILLING DEFECT TO SUGGEST PULMONARY EMBOLISM. 2. THERE IS ILIAC LYMPHADENOPATHY WITH MIXED LYTIC AND SCLEROTIC LESIONS OF THE SKELETON, CONCERNING FOR METASTATIC DISEASE. 3. THE PROSTATE GLAND IS ENLARGED. 4. ATHEROSCLEROSIS. 5. CHOLELITHIASIS. 6. RIGHT INGUINAL HERNIA CONTAINING A CORNER OF THE BLADDER. Reviewed by Dr. Barron. - EKG 07:33 Cardiac Rate: Tachycardia - 114 BPM EKG Rhythm: Sinus Tachycardia ST Segment: Normal Ectopy: None Summary of EKG Findings: EKG at 07:33 shows sinus tachycardia with 114 BPM, 1 PVC, no STEMI. Reviewed and interpreted by Dr. Barron. Re-Evaluation - Re-Evaluation First Eval Re-Evaluation Time: 10:07 Change: Unchanged Comment: At 10:07, patient was updated on imaging results and told to call Marcial Newberry if he does not receive a call to schedule an appointment. Chest Pain Course/Dx - Course Course Of Treatment: Patient's here 3 days of shortness of breath and constant chest pain. Patient has smoked cigarettes for 42 years and likely has an underlying component of COPD although he has not been formally diagnosed. Patient was overall well-appearing outside of tachycardia which is baseline for him per chart review and patient's word. Patient had blood tests performed showed an elevated d-dimer greater than 1050, hyponatremia 129, elevated alkaline phosphatase, and elevated LFTs. Given patient's abnormal labs, I was concerned about underlying undiagnosed malignancy. Patient had a CTA of his chest showed no PE. Patient also had a CT scan of his abdomen which showed iliac lymphadenopathy, multiple lytic lesions of his bones concerning for metastatic cancer. Oncology was called and they recommended follow-up in office this week. They state they will call patient tomorrow to set up an appointment. - Diagnoses Provider Diagnoses: Hyponatremia, Anemia, Metastatic cancer, Chest pain, SOB (shortness of breath) , Lymphadenopathy - Provider Notifications Discussed Care Of Patient With: Marcial Newberry - At 10:05, Marcial Newberry will have the neonatal intensive care nurse call the patient to schedule an appointment tomorrow. Time Discussed With Above Provider: 10:05 Instructed by Provider To: Have Pt Call For Appt. Discharge ED - Sign-Out/Discharge Documenting (check all that apply): Patient Departure - Discharge - Discharge Plan Condition: Stable Disposition: HOME Prescriptions: traMADol TAB* [Ultram*] 50 mg PO Q6HR PRN #20 tab MDD 4 tablets PRN Reason: Pain - Severe Patient Education Materials: Chest Pain (ED) Referrals: Francisco J Holley MD [Primary Care Provider] - Marcial Newberry PA [Physician Business Intelligence Engineer] - Additional Instructions: PLEASE RETURN TO EMERGENCY DEPARTMENT FOR WORSENING TROUBLE BREATHING, WORSENING CHEST PAIN, OR ANY NEW OR WORSENING SYMPTOMS. Please follow up with your primary care physician. Please make all follow-ups in 1-3 days unless I advise you otherwise. Call Marcial Newberry tomorrow to set up an appointment. Take your prescribed pain medication if needed. - Billing Disposition and Condition Condition: STABLE Disposition: Home - Attestation Statements Document Initiated by Kalyn: Yes Documenting Scribe: Shoshana Flaherty Provider For Whom Kalyn is Documenting (Include Credential): Fernando Barron MD Scribe Attestation: Shoshana Joy, scribed for Fernando Barron MD on 11/18/19 at 1113. Scribe Documentation Reviewed: Yes Provider Attestation: The documentation as recorded by the Shoshana villagomez accurately reflects the service I personally performed and the decisions made by me, Fernando Barron MD Status of Scribe Document: Viewed
[2019-11-18] MEDS ORDERED: NS 0.9% 1000 ML** 1,000 ML IV ONE (07:44)
[2019-11-18 07:47] LABS: Hematocrit 33 % (42-52); Hemoglobin 11.8 g/dL (14.0-18.0); Mean Corpuscular HGB Conc 35 g/dL (31-36); Mean Corpuscular Hemoglobin 29 pg (27-31); Mean Corpuscular Volume 81 fL (80-94); Mean Platelet Volume 7.1 fL (7.4-10.4); Platelet Count 182 10^3/uL (150-450); Red Blood Count 4.12 10^6 /uL (4.18-5.48); Red Cell Distribution Width 19 % (10-15); White Blood Count 9.1 10^3/uL (3.5-10.8)
[2019-11-18 08:05] LABS: ALT 69 U/L (7-52); AST 45 U/L (13-39); Albumin 3.4 g/dL (3.2-5.2); Albumin/Globulin Ratio 0.9 (1-3); Alkaline Phosphatase 601 U/L (34-104); Anion Gap 10 mmol/L (2-11); BUN/Creatinine Ratio 28.6 (8-20); Blood Urea Nitrogen 20 mg/dL (6-24); CO2 Carbon Dioxide 27 mmol/L (22-32); Calcium 8.9 mg/dL (8.6-10.3); Chloride 92 mmol/L (101-111); EGFR African American 137.8 (>60); EGFR Non-African American 113.9 (>60); Globulin 3.7 g/dL (2-4); Glucose 166 mg/dL (70-100); Potassium 3.3 mmol/L (3.5-5.0); Sodium 129 mmol/L (135-145); Total Protein 7.1 g/dL (6.4-8.9)
[2019-11-18 08:06] LABS: Troponin I 0.01 ng/mL (<0.03)
[2019-11-18] MEDS ORDERED: Iohexol 350* (CONTRAST) 500 ML MDV IV ONE ×2 (08:13→08:25)
[2019-11-18 08:40] LABS: ABS Basophils 0.1 10^3/ul (0-0.2); ABS Eosinophils 0.1 10^3/ul (0-0.6); ABS Lymphocytes 1.9 10^3/ul (1.0-4.8); ABS Monocytes 0.6 10^3/ul (0-0.8); ABS Neutrophils 6.4 10^3/ul (1.5-7.7); Eosinophil % 0.6 %; Lymphocyte % 21.2 %; Nucleated Red Blood Cells % 0.1
[2019-11-18 11:03] VITALS: BP 129/78
[2019-11-20 19:50] LABS: Immunoglobulin A 199 mg/dL (61 - 356); Immunoglobulin G 1090 mg/dL (767 - 1590); Immunoglobulin M 78 mg/dL (37 - 286)
[2019-11-20 19:59] LABS: Kappa Free Light Chain 1.96 mg/dL; Lambda Free Light Chain 1.18 mg/dL
== END 2019-11-18 11:02 | disposition home or self-care (01) ==
LOC: ED 07:19
DX: E87.1 Hypo-osmolality and hyponatremia (principal); D64.9 Anemia, unspecified; C80.1 Malignant (primary) neoplasm, unspecified; R59.1 Generalized enlarged lymph nodes; R07.9 Chest pain, unspecified; R06.02 Shortness of breath; E78.00 Pure hypercholesterolemia, unspecified; I10 Essential (primary) hypertension; F17.210 Nicotine dependence, cigarettes, uncomplicated; Z79.899 Other long term (current) drug therapy
CPT/HCPCS: 36415; 71275; 74177; 80053; 82784; 83880; 83883; 84153; 84155; 84165; 84484; 85025; 85379; 93005; 99283; G0103; Q9967

== ENCOUNTER 2019-12-06 09:06 | Emergency (ER) | payer OTHER ==
--- NOTE | 2019-12-06 09:21 | ED ---
GI/ HPI - HPI Summary HPI Summary: 64 year old M presenting to [facility] with a chief complaint of groin pain since yesterday, constipation, pain with breathing, and back pain since 7-8 days ago. The patient rates the pain 4/10 in severity. Symptoms aggravated by nothing. Symptoms alleviated by prune juice. Patient reports having a small bowel movement this morning. Patient denies any fever, nausea, or vomiting. He states that he has taken laxatives with no relief. Medication list reviewed. Allergy list reviewed. Home Medications Medication Instructions Recorded Confirmed Type Allopurinol TAB* [Zyloprim 300 MG 300 mg PO DAILY 09/02/14 11/18/19 History TAB*] Ibuprofen TAB* [Advil TAB*] 800 mg PO TID PRN 09/02/14 11/18/19 History Losartan/Hydrochlorothiazide 1 tab PO DAILY 09/02/14 11/18/19 History [Losartan Potassium/Hydroc 100-25 mg] Atorvastatin* [Lipitor*] 40 mg PO DAILY 10/31/17 11/18/19 History Fluocinonide 0.05% CM(NF) [Lidex 1 applic TOPICAL DAILY PRN 10/31/17 11/18/19 History 0.05% CREAM(NF)] Fluticasone NASAL SPRAY 50MCG* 2 spray BOTH NARES DAILY 10/31/17 11/18/19 History [Flonase NASAL SPRAY 50MCG*] Oxycodone HCl 5 mg PO Q6H PRN 10/31/17 11/18/19 History Cyclobenzaprine TAB* [Flexeril 10 10 mg PO QPM PRN 11/08/19 11/18/19 History MG TAB*] traMADol TAB* [Ultram*] 50 mg PO Q6HR PRN #20 tab MDD 4 11/18/19 Rx tablets - History of Current Complaint Chief Complaint: EDConstipation Time Seen by Provider: 12/06/19 09:13 Stated Complaint: CONSTIPATION PER PT Hx Obtained From: Patient Onset/Duration: Started Days Ago Timing: Constant Severity: Moderate Current Severity: Moderate Pain Intensity: 4 Associated Signs and Symptoms: Positive: Back Pain, Constipation Aggravating Factor(s): Nothing - Allergy/Home Medications Allergies/Adverse Reactions: Allergies Allergy/AdvReac Type Severity Reaction Status Date / Time No Known Allergies Allergy Verified 12/06/19 09:07 Home Medications: Home Medications Allopurinol TAB* [Zyloprim 300 MG TAB*] 300 mg PO DAILY 09/02/14 [History Confirmed 12/06/19] Ibuprofen TAB* [Advil TAB*] 800 mg PO TID PRN 09/02/14 [History Confirmed ] Atorvastatin* [Lipitor*] 40 mg PO DAILY 10/31/17 [History Confirmed 12/06/19] Fluocinonide 0.05% CM(NF) [Lidex 0.05% CREAM(NF)] 1 applic TOPICAL BID PRN 10/31 [History Confirmed 12/06/19] Fluticasone NASAL SPRAY 50MCG* [Flonase NASAL SPRAY 50MCG*] 2 spray BOTH NARES DAILY 10/31/17 [History Confirmed 12/06/19] Oxycodone HCl 5 - 10 mg PO Q4H PRN 10/31/17 [History Confirmed 12/06/19] Cyclobenzaprine TAB* [Flexeril 10 MG TAB*] 10 mg PO QPM PRN 11/08/19 [History Confirmed 12/06/19] Losartan Potassium 100 mg PO DAILY 12/06/19 [History Confirmed 12/06/19] Polyethylene Glycol 3350 [Miralax] 17 gm PO QAM 10 Days #10 powd.pack 12/06/19 [ Rx] fentaNYL PATCH 25 MCG/HR* [Duragesic PATCH 25 Mcg/Hr*] 25 mcg TRANSDERM Q72H 09/14 [History Confirmed 12/06/19] PMH/Surg Hx/FS Hx/Imm Hx Cardiovascular History: Reports: Hx Hypercholesterolemia, Hx Hypertension Denies: Hx Myocardial Infarction, Hx Pacemaker/ICD Respiratory History: Denies: Hx Chronic Obstructive Pulmonary Disease (COPD) Musculoskeletal History: Reports: Hx Rheumatoid Arthritis, Hx Gout Sensory History: Denies: Hx Legally Blind, Hx Deafness Opthamlomology History: Denies: Hx Legally Blind Psychiatric History: Denies: Hx Panic Disorder - Surgical History Surgery Procedure, Year, and Place: Rt WRIST- ORIF; Rt KNEE DEBRIDEMENT; BILATERAL SHOULDER REPAIR - NO METAL USED Infectious Disease History: No Infectious Disease History: Denies: Traveled Outside the [place] in Last 30 Days - Family History Known Family History: Positive: Cardiac Disease - [place] in father Negative: Blood Disorder - Social History Alcohol Use: None Hx Substance Use: Yes Substance Use Type: Reports: Marijuana Substance Use Comment - Amount & Last Used: Daily Hx Tobacco Use: Yes Smoking Status (MU): Heavy Every Day Tobacco Smoker Type: Cigarettes Amount Used/How Often: 1 ppd for 42 years Review of Systems Negative: Fever Positive: Other - Pain with breathing Positive: Other - Constipation. Negative: Vomiting, Nausea Positive: other - Groin pain Positive: Other - Back pain All Other Systems Reviewed And Are Negative: Yes Physical Exam - Summary Physical Exam Summary: Constitutional: Well-developed, Well-nourished, Alert. (-) Distressed Skin: Warm, Dry HENT: Normocephalic; Atraumatic Eyes: Conjunctiva normal Neck: Musculoskeletal ROM normal neck. (-) JVD, (-) Stridor, (-) Tracheal deviation Cardio: Rhythm regular, rate normal, Heart sounds normal; Intact distal pulses; Radial pulses are 2+ and symmetric. (-) Murmur Pulmonary/Chest wall: Effort normal. (-) Respiratory distress, (-) Wheezes, (-) Rales; frequent dry cough. Abd: Soft, (-) tenderness but does appear distended, (-) Guarding, (-) Rebound Musculoskeletal: (-) Edema Lymph: (-) Cervical adenopathy Neuro: Alert, Oriented x3 Psych: Mood and affect Normal Triage Information Reviewed: Yes Vital Signs On Initial Exam: Initial Vitals Temp Pulse Resp BP Pulse Ox 98.4 F 115 20 136/90 97 12/06/19 09:07 12/06/19 09:07 12/06/19 09:07 12/06/19 09:07 12/06/19 09:07 Vital Signs Reviewed: Yes Procedures - Sedation Patient Received Moderate/Deep Sedation with Procedure: No Diagnostics - Vital Signs Vital Signs Temp Pulse Resp BP Pulse Ox 12/06/19 09:07 98.4 F 115 20 136/90 97 - Laboratory Result Diagrams: 12/06/19 09:54 12/06/19 09:54 Lab Statement: Any lab studies that have been ordered have been reviewed, and results considered in the medical decision making process. - Radiology Chest x-ray Radiology Interpretation Completed By: Radiologist Summary of Radiographic Findings: Cardiomegaly with interstitial edema likely representing CHF. ED physician has reviewed this report. - CT Abdomen/Pelvis CT CT Interpretation Completed By: Radiologist Summary of CT Findings: 1. Much of the colon is gas-filled but there is no pathologic distention of the small or. large bowel. Air and stool is seen as far as the rectum. There is no CT evidence of bowel. obstruction. 2. Again seen are pathologically enlarged bilateral iliac chain lymph nodes as well as. widespread sclerotic mottling of the visualized bones consistent with metastatic disease. 3. Gallstones without acute inflammatory change or evidence of biliary obstruction. 4. A portion of the urinary bladder herniates into a right inguinal hernia. There is no. focal inflammatory change or evidence of obstruction. 5. Prostamegaly. 6. There is atherosclerotic calcification of the visualized iliofemoral arteries. Please. correlate to any signs or symptoms of lower extremity arterial insufficiency. ED physician has reviewed this report. - Ultrasound Pelvic US Ultrasound Interpretation Completed By: Radiologist Summary of Ultrasound Findings: Accessible enlarged right iliac chain lymph nodes for biopsy with ultrasound guidance. ED physician has reviewed this report. - EKG 09:38 Cardiac Rate: Tachycardia - 110 BPM EKG Rhythm: Sinus Tachycardia Summary of EKG Findings: Prolonged QTC, no obvious ischemic changes, grossly unchanged from an EKG done on 11/18/2019. ED physician has reviewed and interpreted this EKG. Re-Evaluation - Re-Evaluation First Eval Re-Evaluation Time: 12:25 Comment: The patient had a large bowel movement in the ED. GIGU Course/Dx - Course Course Of Treatment: Patient is here with constipation in the setting of recently diagnosed cancer. Patient has metastatic disease to his bones and has been having pain in his back due to this. Patient had a small bowel movement this morning but no bowel movement outside of that in the past 7 days. Patient is on chronic opiates which is likely contributing to his constipation. However , given patient's history, a CT scan was performed which showed no evidence of bowel obstruction. While in the emergency department, patient did have 2 large bowel movements. Patient also had a chest x-ray which did show some poor edema but he had a normal BNP. Patient was not short of breath or hypoxic. Patient had his ultrasound of his inguinal lymph nodes performed here as he missed his outpatient appt today. - Diagnoses Provider Diagnoses: Constipation Discharge ED - Sign-Out/Discharge Documenting (check all that apply): Patient Departure - Discharge Plan Condition: Stable Disposition: HOME Prescriptions: Polyethylene Glycol 3350 [Miralax] 17 gm PO QAM 10 Days #10 powd.pack Patient Education Materials: Constipation (ED) Referrals: Francisco J Holley MD [Primary Care Provider] - Cornelio Greenwood MD [Medical Doctor] - 3 Days Additional Instructions: Follow-up with Dr. Greenwood in 1-3 days. Take your prescribed laxative. Return to the emergency department if you are unable to have a bowel movement and start vomiting or for any other concerning symptoms. - Billing Disposition and Condition Condition: STABLE Disposition: Home - Attestation Statements Document Initiated by Hamiltonibe: Yes Documenting Scribe: Rani Encinas Provider For Whom Kalyn is Documenting (Include Credential): Fernando Barron MD Scribe Attestation: Rani Joy scribed for Fernando Barron MD on 12/06/19 at 1622. Scribe Documentation Reviewed: Yes Provider Attestation: The documentation as recorded by the Rani villagomez accurately reflects the service I personally performed and the decisions made by , Fernando Barron MD Status of Scribe Document: Viewed
--- OUTSIDE RECORDS SUMMARY | 2019-12-06 09:33 | XMS REPORT | Continuity of Care Document ---
:1955 External Reference #:[id number] Author Name Francisco J Holley M.D. (transmitted by agent of provider Lakia Han) Address [address] [facility] [address] [place] [address] Care Team Providers Name Role Phone HCP given Care Team Information Credit Cashier Unavailable [facility] - Cardiovascular Care Team Information Credit Cashier Disease Michael Galarza MD - Orthopaedic Care Team Information [facility] - Care Team Information Credit Cashier [phone] [facility] - Surgery Care Team Information [facility] - Pain Medicine Care Team Information Credit Cashier [phone] Problems Active Problems Provider Date 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 Onset: 08/01/2017 Malignant tumor of prostate Francisco J Holley M.D. Onset: 11/26/2019 Social History Type Date Description Comments Sex [...] Medications SIG Qnty Indications Ordering Date Provider Losartan Potassium take 1 tablet 30tabs I10 Francisco J Holley, 11/19/2019 daily in the M.D. 100mg Tablets morning for high blood pressure and kidney protection Oxycodone HCL 1-2 tablets by 180tabs M25.519 Francisco J Holley, 11/19/2019 5mg mouth every 6 M.D. Tablets hours as needed for severe pain M25.579 G89.4 Cyclobenzaprine HCL 1 by mouth at 30tabs M54.5 Francisco J Holley, 10/09/2019 10mg Tablets night if needed M.D. for back pain M54.9 Atorvastatin Calcium take one tablet by 30tabs E71.30 Francisco J Holley, mouth every day for M.D. 40mg Tablets high cholesterol Fluocinonide apply a thin layer 60gm R21 Francisco J Holley, 07/08/2015 0.05% to affected areas on M.D. Cream hands and wrists two times a day as needed for itch Ibuprofen take one tablet by 50tabs M25.559 Francisco J Holley, 03/31/2013 800mg Tablets mouth three times a M.D. day as needed for buttock and hip pain Fluticasone 2 sprays into each 16units J31.0 Francisco J Holley, 02/27/2013 Propionate nostril once daily M.D. 50mcg/Act for nasal congestion Suspension Allopurinol take one tablet by 30tabs M10.9 Francisco J Holley, 04/16/2011 300mg mouth every day to M.D. Tablets prevent gout History Medications Fentanyl apply 1 patch, 10units C61 Francisco J Holley, 11/19/2019 - 25mcg/HR change q72h (please M.D. 11/25/2019 Patches 72HR provide Mylan brand if possible) G89.4 Cyclobenzaprine HCL 1 tablet 3x/day 12tabs M54.5 Unknown 07/08/2019 - 10mg Tablets as needed for 10/09/2019 back pain M54.9 Immunizations CPT Code Status Date Vaccine Lot # [id number] Given 05/29/2019 Influenza Virus Vaccine, Quadrivalent, Split, [id number] Preservative Free 11329 Given 01/22/2019 Shingrix Zoster (Shingles) Vaccine (HZV) [id number] Recomb,Subnit,Adjuvanted 91636 Given 07/12/2018 Influenza Virus Vaccine, Quadrivalent, Split, [id number] Preservative Free 69736 Given 05/02/2018 Shingrix Zoster (Shingles) Vaccine (HZV) [id number] Recomb,Subnit,Adjuvanted 06941 Given 05/27/2017 Influenza Virus Vaccine, Quadrivalent, Split, [id number] Preservative Free 80288 Given 09/15/2016 Zostavax [id number] 68186 Given 07/13/2016 Influenza Virus Vaccine, Quadrivalent, Split, [id number] Preservative Free 80401 Given 07/08/2015 Influenza Virus Vaccine, Quadrivalent, Split, [id number] Preservative Free 28601 Given 08/19/2014 Influenza Virus Vaccine, Quadrivalent, Split, [id number] Preservative Free 32625 Given 07/09/2013 Flu, Split Virus 3Yrs [id number] 88669 Given 06/28/2012 Flu, Split Virus 3Yrs [id number] 60783 Given 06/21/2011 Flu, Split Virus 3Yrs [id number] 90438 Given 11/27/2010 Pneumococcal Immunization [id number] 36894 Given 11/27/2010 Adacel or Boostrix, TDaP [id number] 87146 Given 07/17/2010 Flu, Split Virus 3Yrs [id number] Vital Signs Date Vital Result Comment 11/26/2019 10:37am BP Systolic 128 mmHg BP Diastolic 68 mmHg Weight 255.00 lb w/shoes 11/19/2019 4:34pm BP Systolic 110 mmHg BP Diastolic 60 mmHg Weight 250.00 lb Results Test Acquired Date Facility Test Result H/L Range Note Urine Drug Screen Inhouse 11/26/2019 In House [facility] Cocaine - [facility] Opiates - [facility] Amphetamines - Urine Methanphetamines - Urine Benzodiazepines QN [place] - Urine Oxycodone QL + Laboratory test 11/18/2019 [facility] D Dimer > 1050 High Less Than 1 finding [phone] Quantitative ng/mL 230 Laboratory test 11/18/2019 [facility] B-Type 31 pg/mL <=100 finding [phone] Natriuretic Peptide BNP Comp Metabolic 11/18/2019 [facility] Sodium 129 mmol/L Low 135-145 Panel [phone] Potassium 3.3 mmol/L Low 3.5-5.0 Chloride 92 mmol/L Low 101-111 Co2 Carbon Dioxide 27 mmol/L Normal 22-32 Anion Gap 10 mmol/L Normal 2-11 Glucose 166 mg/dL High 70-100 Blood Urea Nitrogen 20 mg/dL Normal 6-24 Creatinine 0.70 mg/dL Normal 0.67-1.17 BUN/Creatinine Ratio 28.6 High 8-20 Calcium 8.9 mg/dL Normal 8.6-10.3 Total Protein 7.1 g/dL Normal 6.4-8.9 Albumin 3.4 g/dL Normal 3.2-5.2 Globulin 3.7 g/dL Normal 2-4 Albumin/Globulin Ratio 0.9 Low 1-3 Total Bilirubin 0.70 mg/dL Normal 0.2-1.0 Alkaline Phosphatase 601 U/L High 34-104 Alt 69 U/L High 7-52 Ast 45 U/L High 13-39 Egfr Non- 113.9 >60 Egfr 137.8 >60 2 Laboratory test 11/18/2019 [facility] Troponin-I 0.01 ng/mL <0.03 3 finding [phone] (TnI) CBC Auto Diff 11/18/2019 [facility] White Blood 9.1 Normal 3.5-10.8 [phone] Count 10^3/uL Red Blood Count 4.12 10^6/uL Low 4.18-5.48 Hemoglobin 11.8 g/dL Low 14.0-18.0 Hematocrit 33 % Low 42-52 Mean Corpuscular Volume 81 fL Normal 80-94 Mean Corpuscular Hemoglobin 29 pg Normal 27-31 Mean Corpuscular HGB Conc 35 g/dL Normal 31-36 Red Cell Distribution Width 19 % High 10-15 Platelet Count 182 10^3/uL Normal 150-450 Mean Platelet Volume 7.1 fL Low 7.4-10.4 Abs Neutrophils 6.4 10^3/uL Normal 1.5-7.7 Abs Lymphocytes 1.9 10^3/uL Normal 1.0-4.8 Abs Monocytes 0.6 10^3/uL Normal 0-0.8 Abs Eosinophils 0.1 10^3/uL Normal 0-0.6 Abs Basophils 0.1 10^3/uL Normal 0-0.2 Abs Nucleated RBC 0.0 10^3/uL Granulocyte % 70.8 % Lymphocyte % 21.2 % Monocyte % 6.4 % Eosinophil % 0.6 % Basophil % 1.0 % Nucleated Red Blood Cells % 0.1 Manual Differential 11/18/2019 [facility] Immature 6.0 % Normal 0-9 [phone] Granulocytes Neutrophil % 68.0 % Band % 3.0 % Normal 0-8 Lymphocytes % 17.0 % Monocytes % 3.0 % Eosinophils % 1.0 % Basophil % 1.0 % Variant Lymph % 4.0 % Normal 0-6 Metamyelocytes % 3.0 % High 0-2 RBC Morphology Normal Normal Laboratory test 11/18/2019 [facility] PSA Screening > 1450.000 High 0 -4.000 4 finding [phone] ng/mL Immunoglobulins 11/18/2019 [facility] Immunoglobulin G 1090 mg/dL 767 - 5 Serum Quant [phone] Immunoglobulin M 78 mg/dL 37 - 286 Immunoglobulin A 199 mg/dL 61 - 356 Arimo/Lambda Free 11/18/2019 [facility] [place] Free 1.96 mg/dL Abnormal 6 Light Chains Ser [phone] Light Chain Lambda Free Light Chain 1.18 mg/dL 7 [place]/Lambda Free Light Chain 1.66 Abnormal 8 Protein 11/18/2019 [facility] Total 6.6 g/dL 6.3 - Electrophoresis [phone] Protein(Pep) 7.9 Albumin 2.7 g/dL Abnormal 3.4-4.7 Alpha-1 Globulin 0.6 g/dL Abnormal 0.1-0.3 Alpha-2 Globulin 1.3 g/dL Abnormal 0.6-1.0 Beta Globulin 1.0 g/dL 0.7-1.2 Gamma Globulin 1.1 g/dL 0.6-1.6 Albumin/Globulin Ratio 0.69 Impression See Comment 9 Laboratory test 11/08/2019 [facility] Troponin-I (TnI) 0.01 ng/mL < 0.03 10 finding [phone] Comp Metabolic 11/08/2019 [facility] Sodium 132 mmol/L Low 135-145 Panel [phone] Potassium 3.3 mmol/L Low 3.5-5.0 Chloride 95 mmol/L Low 101-111 Co2 Carbon Dioxide 28 mmol/L Normal 22-32 Anion Gap 9 mmol/L Normal 2-11 Glucose 107 mg/dL High 70-100 Blood Urea Nitrogen 16 mg/dL Normal 6-24 Creatinine 0.74 mg/dL Normal 0.67-1.17 BUN/Creatinine Ratio 21.6 High 8-20 Calcium 9.4 mg/dL Normal 8.6-10.3 Total Protein 7.5 g/dL Normal 6.4-8.9 Albumin 3.9 g/dL Normal 3.2-5.2 Globulin 3.6 g/dL Normal 2-4 Albumin/Globulin Ratio 1.1 Normal 1-3 Total Bilirubin 1.00 mg/dL Normal 0.2-1.0 Alkaline Phosphatase 759 U/L High 34-104 Alt 21 U/L Normal 7-52 Ast 73 U/L High 13-39 Egfr Non- 106.8 >60 Egfr 129.3 >60 11 CBC Auto Diff 11/08/2019 [facility] White Blood 6.9 10^3/uL Normal 3.5-10.8 [phone] Count Red Blood Count 4.26 10^6/uL Normal 4.18-5.48 Hemoglobin 12.4 g/dL Low 14.0-18.0 Hematocrit 35 % Low 42-52 Mean Corpuscular Volume 82 fL Normal 80-94 Mean Corpuscular Hemoglobin 29 pg Normal 27-31 Mean Corpuscular HGB Conc 35 g/dL Normal 31-36 Red Cell Distribution Width 18 % High 10-15 Platelet Count 149 10^3/uL Low 150-450 Mean Platelet Volume 7.1 fL Low 7.4-10.4 Abs Neutrophils 5.3 10^3/uL Normal 1.5-7.7 Abs Lymphocytes 1.0 10^3/uL Normal 1.0-4.8 Abs Monocytes 0.4 10^3/uL Normal 0-0.8 Abs Eosinophils 0.1 10^3/uL Normal 0-0.6 Abs Basophils 0.1 10^3/uL Normal 0-0.2 Abs Nucleated RBC 0.0 10^3/uL Granulocyte % 77.6 % Lymphocyte % 14.2 % Monocyte % 6.5 % Eosinophil % 0.8 % Basophil % 0.9 % Nucleated Red Blood Cells % 0.1 Urinalysis Profile 11/08/2019 [facility] Urine Color Yellow [phone] Urine Appearance Clear Urine Specific [place] 1.015 Normal 1.010-1.030 Urine pH 6.0 Normal 5-9 Urine Urobilinogen Positive Abnormal Negative Urine Ketones Negative Negative Urine Protein Negative Negative Urine Leukocytes Negative Negative Urine Blood Negative Negative Urine Nitrite Negative Negative Urine Bilirubin Negative Negative Urine Glucose Negative Negative Urine Micro Inhouse 10/09/2019 In House [facility] WBC - 12 Ua RBC - Ua Casts - Ua Epi - Ua Other - Ua Glucose - Ua Bilirubin - Ua Ketones - Ua Specific [place] 1.005 Ua Blood - Ua PH 7.0 Ua Protein - Ua Urobilinogen - Ua Nitrite - Ua Leukocytes - Laboratory test 07/16/2019 [facility] Alt (SGPT) 28 U/L Normal 7-52 13, 14 finding [phone] Lipid Profile 07/16/2019 [facility] Triglycerides 118 mg/dL 15 (Trig/Chol/HDL) [phone] Cholesterol 130 mg/dL 16 HDL Cholesterol 28.8 mg/dL 17 LDL Cholesterol 78 mg/dL 18 Laboratory test 07/16/2019 [facility] Uric Acid 5.9 mg/dL Normal 4.4- 7.6 19 finding [phone] Basic Metabolic 07/16/2019 [facility] Sodium 134 mmol/L Low 135-145 Panel [phone] Potassium 4.0 mmol/L Normal 3.5-5.0 Chloride 100 mmol/L Low 101-111 Co2 Carbon Dioxide 26 mmol/L Normal 22-32 Anion Gap 8 mmol/L Normal 2-11 Glucose 111 mg/dL High 70-100 Blood Urea Nitrogen 14 mg/dL Normal 6-24 Creatinine 0.83 mg/dL Normal 0.67-1.17 BUN/Creatinine Ratio 16.9 Normal 8-20 Calcium 9.4 mg/dL Normal 8.6-10.3 Egfr Non- 93.9 >60 Egfr 113.6 >60 20 Urinalysis Profile 07/08/2019 [facility] Urine Color Yellow [phone] Urine Appearance Clear Urine Specific [place] 1.018 Normal 1.010-1.030 Urine pH 6.0 Normal 5-9 Urine Urobilinogen Negative Negative Urine Ketones Negative Negative Urine Protein Negative Negative Urine Leukocytes Negative Negative Urine Blood Negative Negative Urine Nitrite Negative Negative Urine Bilirubin Negative Negative Urine Glucose Negative Negative CBC Auto Diff 07/08/2019 [facility] White Blood 10.9 10^3/uL High 3.5 -10.8 [phone] Count Red Blood Count 5.43 10^6/uL Normal [...] Cells % 0.1 Comp Metabolic Panel 07/08/2019 [facility] Sodium 131 mmol/L Low 135- 145 [phone] Potassium 3.7 mmol/L Normal 3.5-5.0 Chloride 98 [...] Egfr Non- 95.2 >60 Egfr 115.2 >60 21 Laboratory test 07/08/2019 [facility] C Reactive 12.11 mg/L High < 8.01 finding [phone] Protein Troponin-I (TnI) 0.00 ng/mL <0.04 22 1 Please note: The following may produce a false positive D Dimer test: - Rheumatoid factor greater than 60 IU/ml - Plasma hemoglobin greater than 0.05 gm/dl - Bilirubin greater than 50 mg/dl - Lipids greater than 1000 mg/dl - FDP greater than 20 ug/ml 2 Because ethnic data is not always readily [...] 15-29 5 Kidney failure <15 (or dialysis) 3 Troponin-I testing on Plasma Separator Tubes (PST) has a known false positive rate of 0.20-0.40%. All positive troponins reflex immediately to secondary confirmatory testing. Using the [employer] DxI 800 Access Immunoassay systems, the 99th percentile upper reference limit was demonstrated to be < 0.03 ng/mL. 4 Serum levels of PSA measured using the Jeremias Randy DXI Hybritech immunoassay should not be interpreted as absolute evidence of the presence or absence of disease. The PSA value should be used in conjunction with other pertinent clinical diagnostic procedures. The values obtained with different assay methods or kits cannot be used interchangeably. 5 Test Performed by: [place] [address] Sas Programmer Analyst: James Sheikh M.D. Ph.D.; CLIA# [id number] 6 REFERENCE VALUE 0.3300-1.94 7 REFERENCE VALUE 0.5700-2.63 8 Elevated free light chain ratios between 1.66 and 3.00 may occur due to polyclonal hypergammaglobulinemia or impaired renal clearance. An isolated increased free light chain ratio in this range should be interpreted with caution, and clinical correlation is recommended. REFERENCE VALUE 0.2600-1.65 Test Performed by: [place] [address] [employer] Programmer Analyst: James Sheikh M.D. Ph.D.; CLIA# [id number] 9 RESULT: No apparent monoclonal protein on serum electrophoresis. Test Performed by: [place] [address] Sas Programmer Analyst: James Sheikh M.D. Ph.D.; CLIA# [id number] 10 Troponin-I testing on Plasma Separator Tubes (PST) has a known false positive rate of 0.20-0.40%. All positive troponins reflex immediately to secondary confirmatory testing. Using the [employer] DxI 800 Access Immunoassay systems, the 99th percentile upper reference limit was demonstrated to be < 0.03 ng/mL. 11 Because ethnic data is not always readily [...] 15-29 5 Kidney failure <15 (or dialysis) 12 void, clear, gold 13 FASTING 12 HOUR 14 FASTING 12 HOUR 15 Desirable: <150 Borderline High: 150-199 High: 200-499 Very High: >500 16 Desirable: <200 Borderline High: 200-239 High: >239 17 Low: <40 Desirable: 40-60 High: >60 18 Desirable: <100 Near Optimal: 100-129 Borderline High: 130-159 High: 160-189 Very High: >189 19 FASTING 12 HOUR 20 Because ethnic data is not always readily [...] 15-29 5 Kidney failure <15 (or dialysis) 21 Because ethnic data is not always readily [...] 15-29 5 Kidney failure <15 (or dialysis) 22 Troponin-I testing on Plasma Separator Tubes (PST) has a known false positive rate of 0.20-0.40%. All positive troponins reflex immediately to secondary confirmatory testing. Using the [employer] Access Immunoassay systems, the 99th percentile upper reference limit was demonstrated to be < 0.03 ng/mL. Procedures Date Code Description Status 11/03/2017 [id number] Colonoscopy Completed Medical Devices Description No Information Available Encounters Type Date Location Provider Dx Diagnosis Office Visit 11/26/2019 Main Office Francisco J Holley, G89.4 Chronic pain 10:15a M.D. syndrome C61 Malignant neoplasm of prostate R97.20 Elevated prostate specific antigen [PSA] Z79.891 continuous churn buttermaker (current) use of opiate analgesic Z71.89 Other specified counseling Office Visit 11/19/2019 4:45p Main Office Francisco J Holley, C61 Malignant neoplasm M.D. of prostate R97.20 Elevated prostate specific antigen [PSA] D64.9 Anemia, unspecified E87.1 Hypo-osmolality and hyponatremia E87.6 Hypokalemia R63.4 Abnormal weight loss G89.4 Chronic pain syndrome I10 Essential (primary) hypertension Office Visit 10/09/2019 10:00a Main Office Francisco J Holley, I10 Essential (primary) M.D. 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 M54.5 Low back pain M54.9 Dorsalgia, unspecified Z68.41 Body mass index (BMI) 40.0-44.9, adult Assessments Date Code Description Provider 11/26/2019 G89.4 Chronic pain syndrome Francisco J Holley M.D. 11/26/2019 C61 Malignant neoplasm of prostate Francisco J Holley M.D. 11/26/2019 R97.20 Elevated prostate specific antigen [PSA] Francisco J Holley M.D. 11/26/2019 Z79.891 continuous churn buttermaker (current) use of opiate analgesic Francisco J Holley M.D. 11/26/2019 Z71.89 Other specified counseling Francisco J Holley M.D. 11/19/2019 C61 Malignant neoplasm of prostate Francisco J Holley M.D. 11/19/2019 R97.20 Elevated prostate specific antigen [PSA] Francisco J Holley M.D. 11/19/2019 D64.9 Anemia, unspecified Francisco J Holley M.D. 11/19/2019 E87.1 Hypo-osmolality and hyponatremia Francisco J Holley M.D. 11/19/2019 E87.6 Hypokalemia Francisco J Holley M.D. 11/19/2019 R63.4 Abnormal weight loss Francisco J Holley M.D. 11/19/2019 G89.4 Chronic pain syndrome Francisco J Holley M.D. 11/19/2019 I10 Essential (primary) hypertension Francisco J Holley M.D. 10/09/2019 I10 Essential (primary) hypertension Francisco J Holley M.D. 10/09/2019 R73.01 Impaired fasting glucose Francisco J Holley M.D. 10/09/2019 G89.4 Chronic pain syndrome Francisco J Holley M.D. 10/09/2019 Z79.891 continuous churn buttermaker (current) use of opiate analgesic Francisco J Holley M.D. 10/09/2019 M10.9 Gout, unspecified Francisco J Holley M.D. 10/09/2019 M54.5 Low back pain Francisco J Holley M.D. 10/09/2019 Z68.41 Body mass index (BMI) 40.0-44.9, adult Francisco J Holley M.D. 07/30/2019 R73.01 Impaired fasting glucose Francisco J Holley M.D. 07/30/2019 G89.4 Chronic pain syndrome Francisco J Holley M.D. 07/30/2019 Z79.891 continuous churn buttermaker (current) use of opiate analgesic Francisco J [...] (BMI) 40.0-44.9, adult Francisco J Holley M.D. Plan of Treatment Future Appointment(s):12/10/2019 9:30 am - Nurse's Schedule at Main Nyhmzw6512/09 9:30 am - Francisco J Holley M.D. at Main Oczffv9811/26/2019 - Francisco J Holley M.D.G89.4 Chronic pain syndromeComments:New opioid contract reviewed and signed.Continue oxycodone total of 60mg/day.Will have staff touch base w/ him morning to assess his progress then likely reach out ot his insurance requesting coverage for Fentanyl patches (see recent triages about this).C61 Malignant neoplasm of tnuudlxtN31.20 Elevated prostate specific antigen [PSA]Z79.891 continuous churn buttermaker (current) use of opiate tofydvmteH11.89 Other specified counseling Functional Status Description No Information Available Mental Status Description No Information Available Referrals Description No Information Available
--- OUTSIDE RECORDS SUMMARY | 2019-12-06 09:33 | XMS REPORT | Continuity of Care Document ---
:1955 External Reference #:[id number] Author Name Francisco J Holley M.D. Address [address] [facility] [address] [place] [address] Care Team Providers Name Role Phone HCP given Care Team Information Airplane Cleaner Unavailable [facility] - Cardiovascular Care Team Information Airplane Cleaner Disease Michael Galarza MD - Orthopaedic Care Team Information Airplane Cleaner [phone] [facility] - Care Team Information Airplane Cleaner [phone] [facility] - Surgery Care Team Information Air[facility] - [facility] Medicine Care Team Information Airplane Cleaner [phone] Problems Active Problems Provider Date Benign essential [...] for high blood pressure and kidney protection Fentanyl apply 1 patch, 10units C61 Francisco J Holley, 11/19/2019 25mcg/HR change q72h M.D. Patches 72HR (please provide Mylan brand if possible) G89.4 Oxycodone HCL 1-2 tablets by 180tabs M25.519 [...] to M.D. Tablets prevent gout History Medications Cyclobenzaprine HCL 1 tablet 3x/day 12tabs M54.5 Unknown 07/08/2019 - 10mg Tablets as needed for 10/09/2019 back pain M54.9 Immunizations CPT Code Status Date Vaccine Lot # [id number] Given 05/29/2019 Influenza Virus Vaccine, Quadrivalent, Split, [id number] Preservative Free 16254 Given 01/22/2019 Shingrix Zoster (Shingles) Vaccine (HZV) [id number] Recomb,Subnit,Adjuvanted 11994 Given 07/12/2018 Influenza Virus Vaccine, Quadrivalent, Split, [id number] Preservative Free 14312 Given 05/02/2018 Shingrix Zoster (Shingles) Vaccine (HZV) [id number] Recomb,Subnit,Adjuvanted 82517 Given 05/27/2017 Influenza Virus Vaccine, Quadrivalent, Split, [id number] Preservative Free 95046 Given 09/15/2016 Zostavax [id number] 22799 Given 07/13/2016 Influenza Virus Vaccine, Quadrivalent, Split, [id number] Preservative Free 99199 Given 07/08/2015 Influenza Virus Vaccine, Quadrivalent, Split, [id number] Preservative Free 28435 Given 08/19/2014 Influenza Virus Vaccine, Quadrivalent, Split, [id number] Preservative Free 60589 Given 07/09/2013 Flu, Split Virus 3Yrs [id number] 58839 Given 06/28/2012 Flu, Split Virus 3Yrs [id number] 43666 Given 06/21/2011 Flu, Split Virus 3Yrs [id number] 47957 Given 11/27/2010 Pneumococcal Immunization [id number] 30210 Given 11/27/2010 Adacel or Boostrix, TDaP [id number] 41575 Given 07/17/2010 Flu, Split Virus 3Yrs [id number] Vital Signs Date Vital Result Comment 11/19/2019 4:34pm BP Systolic 110 mmHg BP Diastolic 60 mmHg Weight 250.00 lb 10/09/2019 10:05am BP Systolic 122 mmHg BP Diastolic 78 mmHg Height 68 inches 5'8" Weight 266.00 lb BMI (Body Mass Index) 40.4 kg/m2 Results Test Acquired Date Facility Test Result H/L Range Note Laboratory test 11/18/2019 [facility] D Dimer > 1050 High Less Than 1 finding [phone] Quantitative ng/mL 230 Laboratory test 11/18/2019 [facility] B-Type 31 pg/mL <=100 finding [phone] Natriuretic Peptide BNP Comp Metabolic 11/18/2019 [facility] Sodium 129 mmol/L Low 135-145 Panel [phone] Potassium 3.3 mmol/L Low 3.5-5.0 Chloride 92 [...] Egfr 137.8 >60 2 Laboratory test 11/18/2019 [facility] Troponin-I 0.01 ng/mL <0.03 3 finding [phone] (TnI) CBC Auto Diff 11/18/2019 [facility] White Blood 9.1 Normal 3.5-10.8 [phone] Count 10^3/uL Red Blood Count 4.12 10^6/uL [...] Blood Cells % 0.1 Manual Differential 11/18/2019 [facility] Immature 6.0 % Normal 0-9 [phone] Granulocytes Neutrophil % 68.0 % Band % 3.0 % Normal 0-8 Lymphocytes % 17.0 % Monocytes % 3.0 % Eosinophils % 1.0 % Basophil % 1.0 % Variant Lymph % 4.0 % Normal 0-6 Metamyelocytes % 3.0 % High 0-2 RBC Morphology Normal Normal Laboratory test 11/18/2019 [facility] PSA Screening > 1450.000 High 0 -4.000 4 finding [phone] ng/mL Urinalysis 11/08/2019 [facility] Urine Color Yellow Profile [phone] Urine Appearance Clear Urine Specific Liberal 1.015 Normal 1.010-1.030 Urine pH 6.0 Normal 5-9 Urine Urobilinogen Positive Abnormal Negative Urine Ketones Negative Negative Urine Protein Negative Negative Urine Leukocytes Negative Negative Urine Blood Negative Negative Urine Nitrite Negative Negative Urine Bilirubin Negative Negative Urine Glucose Negative Negative CBC Auto Diff 11/08/2019 [facility] White Blood 6.9 10^3/uL Normal 3.5-10.8 [phone] Count Red Blood Count 4.26 10^6/uL Normal [...] Blood Cells % 0.1 Comp Metabolic Panel 11/08/2019 [facility] Sodium 132 mmol/L Low 135- 145 [phone] Potassium 3.3 mmol/L Low 3.5-5.0 Chloride 95 [...] Egfr Non- 106.8 >60 Egfr 129.3 >60 5 Laboratory test 11/08/2019 [facility] Troponin-I (TnI) 0.01 ng/mL < 0.03 6 finding [phone] Urine Micro Inhouse 10/09/2019 In House Ua WBC - 7 Ua RBC - Ua Casts - Ua Epi - Ua Other - Ua Glucose - Ua Bilirubin - Ua Ketones - Ua Specific Liberal 1.005 Ua Blood - Ua PH 7.0 Ua Protein - Ua Urobilinogen - Ua Nitrite - Ua Leukocytes - Laboratory test 07/16/2019 [facility] Alt (SGPT) 28 U/L Normal 7-52 8, 9 finding [phone] Lipid Profile 07/16/2019 [facility] Triglycerides 118 mg/dL 10 (Trig/Chol/HDL) [phone] Cholesterol 130 mg/dL 11 HDL Cholesterol 28.8 mg/dL 12 LDL Cholesterol 78 mg/dL 13 Laboratory test 07/16/2019 [facility] Uric Acid 5.9 mg/dL Normal 4.4- 7.6 14 finding [phone] Basic Metabolic 07/16/2019 [facility] Sodium 134 mmol/L Low 135-145 Panel [phone] Potassium 4.0 mmol/L Normal 3.5-5.0 Chloride 100 mmol/L Low 101-111 Co2 Carbon Dioxide 26 mmol/L Normal 22-32 Anion Gap 8 mmol/L Normal 2-11 Glucose 111 mg/dL High 70-100 Blood Urea Nitrogen 14 mg/dL Normal 6-24 Creatinine 0.83 mg/dL Normal 0.67-1.17 BUN/Creatinine Ratio 16.9 Normal 8-20 Calcium 9.4 mg/dL Normal 8.6-10.3 Egfr Non- 93.9 >60 Egfr 113.6 >60 15 Urinalysis Profile 07/08/2019 [facility] Urine Color Yellow [phone] Urine Appearance Clear Urine Specific Liberal 1.018 Normal 1.010-1.030 Urine pH 6.0 Normal 5-9 Urine Urobilinogen Negative Negative Urine Ketones Negative Negative Urine Protein Negative Negative Urine Leukocytes Negative Negative Urine Blood Negative Negative Urine Nitrite Negative Negative Urine Bilirubin Negative Negative Urine Glucose Negative Negative CBC Auto Diff 07/08/2019 [facility] White Blood 10.9 10^3/uL High 3.5 -10.8 [phone] Count Red Blood Count 5.43 10^6/uL Normal [...] Cells % 0.1 Comp Metabolic Panel 07/08/2019 [facility] Sodium 131 mmol/L Low 135- 145 [phone] Potassium 3.7 mmol/L Normal 3.5-5.0 Chloride 98 [...] Egfr Non- 95.2 >60 Egfr 115.2 >60 16 Laboratory test 07/08/2019 [facility] C Reactive 12.11 mg/L High < 8.01 finding [phone] Protein Troponin-I (TnI) 0.00 ng/mL <0.04 17 Laboratory test finding 05/29/2019 In House Hemoglobin A1c 6.0 1 Please note: The following may produce [...] immediately to secondary confirmatory testing. Using the [employer] DxI 800 Access Immunoassay systems, the 99th percentile upper reference limit was demonstrated to be < 0.03 ng/mL. 4 Serum levels of PSA measured using the [employer] DXI Hybritech immunoassay should not be interpreted as absolute evidence of the presence or absence of disease. The PSA value should be used in conjunction with other pertinent clinical diagnostic procedures. The values obtained with different assay methods or kits cannot be used interchangeably. 5 Because ethnic data is not always readily [...] 15-29 5 Kidney failure <15 (or dialysis) 6 Troponin-I testing on Plasma Separator Tubes (PST) has a known false positive rate of 0.20-0.40%. All positive troponins reflex immediately to secondary confirmatory testing. Using the [employer] DxI 800 Access Immunoassay systems, the 99th percentile upper reference limit was demonstrated to be < 0.03 ng/mL. 7 void, clear, gold 8 FASTING 12 HOUR 9 FASTING 12 HOUR 10 Desirable: <150 Borderline High: 150-199 High: 200-499 Very High: >500 11 Desirable: <200 Borderline High: 200-239 High: >239 12 Low: <40 Desirable: 40-60 High: >60 13 Desirable: <100 Near Optimal: 100-129 Borderline High: 130-159 High: 160-189 Very High: >189 14 FASTING 12 HOUR 15 Because ethnic data is not always readily [...] 15-29 5 Kidney failure <15 (or dialysis) 16 Because ethnic data is not always readily [...] 15-29 5 Kidney failure <15 (or dialysis) 17 Troponin-I testing on Plasma Separator Tubes (PST) has a known false positive rate of 0.20-0.40%. All positive troponins reflex immediately to secondary confirmatory testing. Using the [employer] DxI 800 Access Immunoassay systems, the 99th percentile upper reference limit was demonstrated to be < 0.03 ng/mL. Procedures Date Code Description Status 11/03/2017 46662497 Colonoscopy Completed Medical Devices Description No Information Available Encounters Type Date Location Provider Dx Diagnosis Office Visit 10/09/2019 Main Office Francisco J Holley I10 Essential ( primary) 10:00a M.D. hypertension R73.01 Impaired fasting glucose G89.4 Chronic pain syndrome Z79.891 intermediate designer (current) use of opiate analgesic M10.9 Gout, unspecified M54.5 Low back pain Z68.41 Body mass index (BMI) 40.0-44.9, adult Office Visit 07/30/2019 9:30a Main Office Francisco J Holley R73.01 Impaired fasting M.D. 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 M54.5 Low back pain M54.9 Dorsalgia, unspecified Z68.41 Body mass index (BMI) 40.0-44.9, adult Office Visit 05/29/2019 9:30a Main Office Francisco J Holley R73.01 Impaired fasting M.D. 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 10/09/2019 Z79.891 intermediate designer (current) use of opiate analgesic Francisco J Holley M.D. 10/09/2019 M10.9 Gout, unspecified Francisco J Holley M.D. 10/09/2019 M54.5 Low back pain Francisco J Holley M.D. 10/09/2019 Z68.41 Body mass index (BMI) 40.0-44.9, adult Francisco J Holley M.D. 07/30/2019 R73.01 Impaired fasting glucose Francisco J Holley M.D. 07/30/2019 G89.4 Chronic pain syndrome Francisco J Holley M.D. 07/30/2019 Z79.891 intermediate designer (current) use of opiate analgesic Francisco J Holley M.D. 07/30/2019 M10.9 Gout, unspecified Francisco J Holley M.D. 07/30/2019 I10 Essential (primary) hypertension Francisco J Holley M.D. 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 unspecified 07/11/2019 M54.5 Low back pain Francisco J Holley M.D. 07/11/2019 M54.9 Dorsalgia, unspecified Francisco J Holley M.D. 07/11/2019 Z68.41 Body mass index (BMI) 40.0-44.9, adult Francisco J Hollye M.D. 05/29/2019 R73.01 Impaired fasting glucose Francisco J Holley M.D. 05/29/2019 G89.4 Chronic pain syndrome Francisco J Holley M.D. 05/29/2019 Z79.891 halfway (current) use of opiate analgesic Francisco J Holley M.D. 05/29/2019 M10.9 Gout, fabiified Francisco J Holley M.D. 05/29/2019 I10 Essential (primary) hypertension Francisco J Holley M.D. 05/29/2019 F17.210 Nicotine dependence, cigarettes, Francisco J Holley M.D. 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 unspecified 05/29/2019 Z23 Encounter for immunization Francisco J Holley M.D. 05/29/2019 Z41.8 Encounter for other procedures for purposes Francisco J Holley M.D. other than remedying health state Plan of Treatment Future Appointment(s):11/26/2019 10:15 am - Francisco J Holley M.D. at Main [id number]/10/2019 9:30 am - Nurse's Schedule at Main [id number]/10/2019 9:30 am - Francisco J Holley M.D. at Main [id number]/19/2019 - Francisco J Holley M.D.C61 Malignant neoplasm of prostateNew Medication:Fentanyl 25 mcg/HR - apply 1 patch , change q72h (please provide Mylan brand if possible)Comments:Strongly suspected based on imaging findings and markedly elevated PSA. Counseled pt regarding this likely Dx, fact that Tx even at his stage is often effective at controlling the disease. He is scheduled to see Dr Greenwood this Tuesday.R97.20 Elevated prostate specific antigen [PSA]D64.9 Anemia, fojaqqyqvzaY92.1 Hypo- osmolality and hyponatremiaComments:will D/C HCTZ, judson given good BP control and wt loss, then gtyzpsbkY75.6 HypokalemiaComments:will D/C HCTZ, judson given good BP control and wt loss, then optchqjyT30.4 Abnormal weight lossG89.4 Chronic pain syndromeNew Medication:Fentanyl 25 mcg/HR - apply 1 patch, change q72h (please provide Mylan brand if possible)Oxycodone HCL 5 mg - 1-2 tablets by mouth every 6 hours as needed for severe painFollow up:Keep your appointment here for next week. However, if you are unable to get the Fnetanyl patches by Tuesday, delay the appointment by 1 week.I10 Essential (primary) hypertensionNew Medication:Losartan Potassium 100 mg - take 1 tablet daily in the morning for high blood pressure and kidney protection Functional Status Description No Information Available Mental Status Description No Information Available Referrals Description No Information Available
[2019-12-06 10:00] LABS: Hematocrit 31 % (42-52); Hemoglobin 10.9 g/dL (14.0-18.0); Mean Corpuscular HGB Conc 35 g/dL (31-36); Mean Corpuscular Hemoglobin 29 pg (27-31); Mean Corpuscular Volume 82 fL (80-94); Mean Platelet Volume 6.7 fL (7.4-10.4); Platelet Count 166 10^3/uL (150-450); Red Blood Count 3.81 10^6 /uL (4.18-5.48); Red Cell Distribution Width 21 % (10-15); White Blood Count 6.2 10^3/uL (3.5-10.8)
[2019-12-06] MEDS ORDERED: NS 0.9% 1000 ML** 1,000 ML IV ONE (10:11)
[2019-12-06 10:56] LABS: Albumin 3.4 g/dL (3.2-5.2); Albumin/Globulin Ratio 0.9 (1-3); Calcium 9.2 mg/dL (8.6-10.3); EGFR African American 150.1 (>60); EGFR Non-African American 124.1 (>60); Globulin 3.6 g/dL (2-4); Potassium 4.1 mmol/L (3.5-5.0); Total Bilirubin 1.1 mg/dL (0.2-1.0)
[2019-12-06 10:57] LABS: Troponin I 0.02 ng/mL (<0.03)
[2019-12-06] MEDS ORDERED: Iohexol 300* (CONTRAST) 10 ML SDV IV ONE (11:01)
[2019-12-06 11:50] LABS: Urine Appearance Clear; Urine Bilirubin Negative (Negative); Urine Blood Negative (Negative); Urine Color Yellow; Urine Glucose Negative (Negative); Urine Ketones Negative (Negative); Urine Nitrite Negative (Negative); Urine Protein Negative (Negative); Urine Specific Gravity 1.008 (1.010-1.030); Urine Urobilinogen Positive (Negative)
[2019-12-06 12:44] LABS: ABS Lymphocytes 1.1 10^3/ul (1.0-4.8); ABS Monocytes 0.5 10^3/ul (0-0.8); ABS Neutrophils 4.5 10^3/ul (1.5-7.7)
[2019-12-06 12:45] VITALS: BP 124/77
[2019-12-06 12:45] LABS: Eosinophil % 0.3 %; Lymphocyte % 17.2 %; Nucleated Red Blood Cells % 0.4
== END 2019-12-06 12:45 | disposition home or self-care (01) ==
LOC: ED 09:06
DX: K59.00 Constipation, unspecified (principal); C41.9 Malignant neoplasm of bone and articular cartilage, unspecified; R10.30 Lower abdominal pain, unspecified; M54.9 Dorsalgia, unspecified; I10 Essential (primary) hypertension; F17.210 Nicotine dependence, cigarettes, uncomplicated; Z79.899 Other long term (current) drug therapy; Z79.891 Long term (current) use of opiate analgesic; R94.31 Abnormal electrocardiogram [ECG] [EKG]; E78.00 Pure hypercholesterolemia, unspecified; Z82.49 Family history of ischemic heart disease and other diseases of the circulatory system
CPT/HCPCS: 36415; 71046; 74177; 76857; 80053; 81003; 83690; 83880; 84484; 85025; 93005; 96360; 99283

== ENCOUNTER 2021-04-20 08:26 | Inpatient (IN) ==
[2021-04-20] MEDS ORDERED: Morphine 4 MG/ML VIAL (1 ml) IV ONE (09:42)
[2021-04-20 10:10] LABS: ABS Eosinophils 0.1 10^3/ul (0-0.6); ABS Lymphocytes 1.4 10^3/ul (1.0-4.8); ABS Monocytes 0.4 10^3/ul (0-0.8); ABS Neutrophils 5.5 10^3/ul (1.5-7.7); Eosinophil % 1.9 %; Hematocrit 36 % (42-52); Hemoglobin 12.1 g/dL (14.0-18.0); Lymphocyte % 18.2 %; Mean Corpuscular HGB Conc 34 g/dL (31-36); Mean Corpuscular Hemoglobin 29 pg (27-31); Mean Corpuscular Volume 84 fL (80-94); Mean Platelet Volume 7.9 fL (7.4-10.4); Platelet Count 155 10^3/uL (150-450); Red Blood Count 4.26 10^6 /uL (4.18-5.48); Red Cell Distribution Width 19 % (10-15); White Blood Count 7.5 10^3/uL (3.5-10.8)
[2021-04-20 10:28] LABS: Albumin/Globulin Ratio 1.3 (1-3); Calcium 9.4 mg/dL (8.6-10.3); EGFR African American 102.8 (>60); Potassium 3.6 mmol/L (3.5-5.0); Total Bilirubin 0.5 mg/dL (0.2-1.0)
[2021-04-20] MEDS ORDERED: fentaNYL PATCH 50 MCG/HR 1 PATCH TRANSDERM SCH (16:00)
[2021-04-20] MEDS: Enoxaparin 40 MG/0.4 ML SYR SUBCUT SCH (17:49)
[2021-04-20] MEDS: Dexamethasone IV 4 MG/ML VIAL 1 ml VIAL IV SLOW PU SCH (17:50)
[2021-04-20] MEDS: fentaNYL Patch Check Q Shift NOTE FOLLOW UP SCH (18:39)
[2021-04-20] MEDS: Saline NASAL SPRAY 0.65% BTL BOTH NARES PRN (20:56)
[2021-04-21] MEDS: Dexamethasone IV 4 MG/ML VIAL 1 ml VIAL IV SLOW PU SCH ×2 (00:49→12:11)
[2021-04-21] MEDS: Polyethylene Glycol 3350 17 GM PACKET PO SCH (07:20)
[2021-04-21] MEDS: Enoxaparin 40 MG/0.4 ML SYR SUBCUT SCH (07:21)
[2021-04-21] MEDS: fentaNYL Patch Check Q Shift NOTE FOLLOW UP SCH ×2 (07:22→19:14)
[2021-04-21] MEDS: Saline NASAL SPRAY 0.65% BTL BOTH NARES PRN (07:24)
[2021-04-21] MEDS: Fluticasone NASAL SPRAY 50MCG 16 gm SPRAY BTL BOTH NARES SCH (07:25)
[2021-04-21] MEDS ORDERED: Lorazepam PYXIS KEY PRN ×2 (09:31→17:05)
[2021-04-21] MEDS: Nicotine PATCH 21 MG/24 HR PATCH TRANSDERM SCH (11:20)
[2021-04-21] MEDS ORDERED: LORazepam 2 mg VIAL 1 ml IV PUSH ONE ×2 (12:00→17:06)
[2021-04-21] MEDS ORDERED: Morphine 10 MG/ML VIAL (1 ml) IV ONE (17:05)
[2021-04-21] MEDS ORDERED: LORazepam 2 mg VIAL 1 ml IV PUSH PRN (22:37)
[2021-04-21] MEDS ORDERED: Morphine 10 MG/ML VIAL (1 ml) IV PRN (23:00)
[2021-04-22] MEDS: Dexamethasone IV 4 MG/ML VIAL 1 ml VIAL IV SLOW PU SCH ×2 (00:58→14:08)
[2021-04-22] MEDS: fentaNYL Patch Check Q Shift NOTE FOLLOW UP SCH ×2 (06:57→19:11)
[2021-04-22] MEDS: Nicotine PATCH 21 MG/24 HR PATCH TRANSDERM SCH (08:37)
[2021-04-22] MEDS: Enoxaparin 40 MG/0.4 ML SYR SUBCUT SCH (08:37)
[2021-04-22] MEDS: Polyethylene Glycol 3350 17 GM PACKET PO SCH (08:37)
[2021-04-22] MEDS: Fluticasone NASAL SPRAY 50MCG 16 gm SPRAY BTL BOTH NARES SCH (10:38)
[2021-04-22] MEDS ORDERED: Gadoteridol (CONTRAST) 279.3 MG/ML 10 ML IV ONE (13:36)
[2021-04-23] MEDS: Dexamethasone IV 4 MG/ML VIAL 1 ml VIAL IV SLOW PU SCH (00:52)
[2021-04-23] MEDS: fentaNYL Patch Check Q Shift NOTE FOLLOW UP SCH ×2 (07:09→18:35)
[2021-04-23] MEDS: fentaNYL PATCH 75 MCG/HR 1 PATCH TRANSDERM SCH (08:45)
[2021-04-23] MEDS: Nicotine PATCH 21 MG/24 HR PATCH TRANSDERM SCH (08:47)
[2021-04-23] MEDS: Enoxaparin 40 MG/0.4 ML SYR SUBCUT SCH (08:47)
[2021-04-23] MEDS: Polyethylene Glycol 3350 17 GM PACKET PO SCH (08:47)
[2021-04-23] MEDS: Fluticasone NASAL SPRAY 50MCG 16 gm SPRAY BTL BOTH NARES SCH (08:49)
[2021-04-24] MEDS: fentaNYL Patch Check Q Shift NOTE FOLLOW UP SCH ×2 (06:37→19:07)
[2021-04-24] MEDS ORDERED: Iohexol 300 (CONTRAST) 10 ML SDV IV ONE (08:40)
[2021-04-24] MEDS: Nicotine PATCH 21 MG/24 HR PATCH TRANSDERM SCH (09:10)
[2021-04-24] MEDS: Fluticasone NASAL SPRAY 50MCG 16 gm SPRAY BTL BOTH NARES SCH (09:10)
[2021-04-24] MEDS: Enoxaparin 40 MG/0.4 ML SYR SUBCUT SCH (09:10)
[2021-04-24] MEDS: Polyethylene Glycol 3350 17 GM PACKET PO SCH (09:12)
[2021-04-24] MEDS: Senna TAB 8.6 mg TAB PO SCH (20:25)
[2021-04-24] MEDS ORDERED: Senna/Docusate 8.6/50 mg (NF) TAB PO SCH (21:00)
[2021-04-25] MEDS: fentaNYL Patch Check Q Shift NOTE FOLLOW UP SCH ×2 (06:59→19:02)
[2021-04-25] MEDS: Polyethylene Glycol 3350 17 GM PACKET PO SCH (09:19)
[2021-04-25] MEDS: Nicotine PATCH 21 MG/24 HR PATCH TRANSDERM SCH (09:19)
[2021-04-25] MEDS: Enoxaparin 40 MG/0.4 ML SYR SUBCUT SCH (09:20)
[2021-04-25] MEDS: Fluticasone NASAL SPRAY 50MCG 16 gm SPRAY BTL BOTH NARES SCH (09:20)
[2021-04-25] MEDS: Senna TAB 8.6 mg TAB PO SCH ×2 (09:21→19:57)
[2021-04-26] MEDS: fentaNYL Patch Check Q Shift NOTE FOLLOW UP SCH ×2 (07:08→18:53)
[2021-04-26] MEDS: fentaNYL PATCH 75 MCG/HR 1 PATCH TRANSDERM SCH (07:58)
[2021-04-26] MEDS: Polyethylene Glycol 3350 17 GM PACKET PO SCH (08:00)
[2021-04-26] MEDS: Senna TAB 8.6 mg TAB PO SCH ×2 (08:00→21:23)
[2021-04-26] MEDS: Enoxaparin 40 MG/0.4 ML SYR SUBCUT SCH (08:01)
[2021-04-26] MEDS: Nicotine PATCH 21 MG/24 HR PATCH TRANSDERM SCH (09:40)
[2021-04-26] MEDS: Fluticasone NASAL SPRAY 50MCG 16 gm SPRAY BTL BOTH NARES SCH (09:40)
[2021-04-27] MEDS: fentaNYL Patch Check Q Shift NOTE FOLLOW UP SCH ×2 (07:02→19:15)
[2021-04-27] MEDS: Polyethylene Glycol 3350 17 GM PACKET PO SCH (07:45)
[2021-04-27] MEDS: Enoxaparin 40 MG/0.4 ML SYR SUBCUT SCH (07:45)
[2021-04-27] MEDS: Nicotine PATCH 21 MG/24 HR PATCH TRANSDERM SCH (07:45)
[2021-04-27] MEDS: Senna TAB 8.6 mg TAB PO SCH (07:46)
[2021-04-27] MEDS: Fluticasone NASAL SPRAY 50MCG 16 gm SPRAY BTL BOTH NARES SCH (07:46)
[2021-04-27] MEDS: fentaNYL PATCH 100 MCG/HR 1 PATCH TRANSDERM SCH (09:15)
[2021-04-28] MEDS: Senna TAB 8.6 mg TAB PO SCH ×3 (03:48→20:11)
[2021-04-28] MEDS: fentaNYL Patch Check Q Shift NOTE FOLLOW UP SCH ×2 (06:44→19:18)
[2021-04-28] MEDS: Nicotine PATCH 21 MG/24 HR PATCH TRANSDERM SCH (07:31)
[2021-04-28] MEDS: Enoxaparin 40 MG/0.4 ML SYR SUBCUT SCH (07:33)
[2021-04-28] MEDS: Polyethylene Glycol 3350 17 GM PACKET PO SCH (07:33)
[2021-04-28] MEDS: Fluticasone NASAL SPRAY 50MCG 16 gm SPRAY BTL BOTH NARES SCH (07:33)
[2021-04-29] MEDS: fentaNYL Patch Check Q Shift NOTE FOLLOW UP SCH ×2 (07:53→18:45)
[2021-04-29 08:19] LABS: ABS Basophils 0.1 10^3/ul (0-0.2); ABS Lymphocytes 0.9 10^3/ul (1.0-4.8); ABS Monocytes 0.6 10^3/ul (0-0.8); ABS Neutrophils 7.8 10^3/ul (1.5-7.7); Eosinophil % 0.2 %; Hematocrit 41 % (42-52); Hemoglobin 13.9 g/dL (14.0-18.0); Mean Corpuscular HGB Conc 34 g/dL (31-36); Mean Corpuscular Hemoglobin 29 pg (27-31); Mean Corpuscular Volume 84 fL (80-94); Mean Platelet Volume 7.4 fL (7.4-10.4); Platelet Count 221 10^3/uL (150-450); Red Blood Count 4.85 10^6 /uL (4.18-5.48); Red Cell Distribution Width 18 % (10-15); White Blood Count 9.4 10^3/uL (3.5-10.8)
[2021-04-29] MEDS: Senna TAB 8.6 mg TAB PO SCH ×2 (08:31→20:50)
[2021-04-29] MEDS: Fluticasone NASAL SPRAY 50MCG 16 gm SPRAY BTL BOTH NARES SCH (08:32)
[2021-04-29] MEDS: Enoxaparin 40 MG/0.4 ML SYR SUBCUT SCH (08:33)
[2021-04-29] MEDS: Nicotine PATCH 21 MG/24 HR PATCH TRANSDERM SCH (08:34)
[2021-04-29 08:35] LABS: Albumin 4.1 g/dL (3.2-5.2); Albumin/Globulin Ratio 1.3 (1-3); EGFR African American 116.1 (>60); EGFR Non-African American 95.9 (>60); Globulin 3.2 g/dL (2-4); Potassium 4.1 mmol/L (3.5-5.0); Total Bilirubin 0.5 mg/dL (0.2-1.0); Total Protein 7.3 g/dL (6.4-8.9)
[2021-04-29] MEDS: Polyethylene Glycol 3350 17 GM PACKET PO SCH (08:35)
[2021-04-30] MEDS: fentaNYL Patch Check Q Shift NOTE FOLLOW UP SCH (07:38)
[2021-04-30] MEDS: Fluticasone NASAL SPRAY 50MCG 16 gm SPRAY BTL BOTH NARES SCH (09:52)
[2021-04-30] MEDS: Polyethylene Glycol 3350 17 GM PACKET PO SCH (09:53)
[2021-04-30] MEDS: Senna TAB 8.6 mg TAB PO SCH (09:53)
[2021-04-30] MEDS: Nicotine PATCH 21 MG/24 HR PATCH TRANSDERM SCH (09:57)
[2021-04-30] MEDS: Enoxaparin 40 MG/0.4 ML SYR SUBCUT SCH (09:57)
[2021-04-30] MEDS: fentaNYL PATCH 100 MCG/HR 1 PATCH TRANSDERM SCH (09:59)
[2021-04-30] MEDS ORDERED: fentaNYL PATCH 50 MCG/HR 1 PATCH TRANSDERM SCH (11:00)
[2021-04-30 11:56] VITALS: BP 139/77
== END 2021-04-30 12:40 | disposition home health service (06) | DRG 500 ==
LOC: ED 08:26 → MED 12:25
PROVIDERS: ADMIT Internal Medicine Hematology & Oncology; ATTEND Internal Medicine Hematology & Oncology

== ENCOUNTER 2021-05-09 15:52 | Inpatient (IN) ==
[2021-05-09] MEDS ORDERED: Lactated Ringers 1000 ml BAG 1,000 ML IV ONE (16:14)
[2021-05-09] MEDS ORDERED: HYDROmorphone 1 MG/1 ML SYRINGE IV SLOW PU ONE (16:17)
[2021-05-09 17:00] LABS: ABS Eosinophils 0.2 10^3/ul (0-0.6); ABS Lymphocytes 0.4 10^3/ul (1.0-4.8); ABS Monocytes 0.5 10^3/ul (0-0.8); ABS Neutrophils 4.5 10^3/ul (1.5-7.7); Eosinophil % 3.5 %; Hematocrit 29 % (42-52); Hemoglobin 9.9 g/dL (14.0-18.0); Lymphocyte % 7.5 %; Mean Corpuscular HGB Conc 34 g/dL (31-36); Mean Corpuscular Hemoglobin 28 pg (27-31); Mean Corpuscular Volume 83 fL (80-94); Mean Platelet Volume 6.3 fL (7.4-10.4); Platelet Count 158 10^3/uL (150-450); Red Blood Count 3.51 10^6 /uL (4.18-5.48); Red Cell Distribution Width 18 % (10-15); White Blood Count 5.6 10^3/uL (3.5-10.8)
[2021-05-09 17:19] LABS: Albumin 3.2 g/dL (3.2-5.2); Albumin/Globulin Ratio 0.9 (1-3); Calcium 8.5 mg/dL (8.6-10.3); EGFR African American 142.1 (>60); EGFR Non-African American 117.4 (>60); Globulin 3.4 g/dL (2-4); Potassium 3.2 mmol/L (3.5-5.0); Total Bilirubin 0.7 mg/dL (0.2-1.0); Total Protein 6.6 g/dL (6.4-8.9)
[2021-05-09] MEDS ORDERED: Iohexol 350 (CONTRAST) 500 ML MDV IV ONE (17:35)
[2021-05-09] MEDS ORDERED: Potassium Chlor 20 meq TAB.ER PO ONE (17:47)
[2021-05-09] MEDS ORDERED: Azithromycin 500 mg/250 ml NS 500 MG/250 ML BAG IVPB ONE (19:30)
[2021-05-09] MEDS ORDERED: cefTRIAXone 1 gm/50 mL NS BAG 1 GM/50 ML BAG IV ONE (19:30)
[2021-05-09] MEDS ORDERED: Ondansetron 4 mg VIAL 2 MG/ML 2 ml VIAL IV PRN (21:20)
[2021-05-09] MEDS ORDERED: Polyethylene Glycol 3350 17 GM PACKET PO PRN (21:25)
[2021-05-09] MEDS ORDERED: Piperacillin/Tazobac ADVAN 3.375 GM in NS 0.9% 100 ml BAG 100 ML IV ONE (21:30)
[2021-05-09 21:39] LABS: Magnesium 1.8 mg/dL (1.9-2.7)
[2021-05-09] MEDS ORDERED: Magnesium Sulfate 2 gm BAG 2 GM/50 ML BAG IVPB ONE (21:45)
[2021-05-09] MEDS ORDERED: Zosyn per Pharmacy NOTE FOLLOW UP SCH (22:00)
[2021-05-09 22:09] LABS: C Reactive Protein 130.37 mg/L (<8.01)
[2021-05-09] MEDS ORDERED: fentaNYL PATCH 100 MCG/HR 1 PATCH TRANSDERM SCH (23:00)
[2021-05-10] MEDS: fentaNYL PATCH 100 MCG/HR 1 PATCH TRANSDERM SCH (00:11)
[2021-05-10] MEDS: Enoxaparin 40 MG/0.4 ML SYR SUBCUT SCH ×2 (00:27→19:53)
[2021-05-10] MEDS: ZOSYN 3.375 GM Q8H per EXTENDED INFUSION IV SCH ×3 (04:34→20:05)
[2021-05-10] MEDS: Senna TAB 8.6 mg TAB PO SCH ×2 (08:02→19:49)
[2021-05-10] MEDS: fentaNYL Patch Check Q Shift NOTE FOLLOW UP SCH ×2 (08:04→19:03)
[2021-05-10] MEDS: Nicotine PATCH 21 MG/24 HR PATCH TRANSDERM SCH (08:04)
[2021-05-10 10:26] LABS: ABS Eosinophils 0.1 10^3/ul (0-0.6); ABS Lymphocytes 0.3 10^3/ul (1.0-4.8); ABS Monocytes 0.2 10^3/ul (0-0.8); ABS Neutrophils 4.2 10^3/ul (1.5-7.7); Eosinophil % 2.7 %; Hematocrit 27 % (42-52); Hemoglobin 9.3 g/dL (14.0-18.0); Lymphocyte % 5.3 %; Mean Corpuscular HGB Conc 34 g/dL (31-36); Mean Corpuscular Hemoglobin 29 pg (27-31); Mean Corpuscular Volume 83 fL (80-94); Mean Platelet Volume 6.4 fL (7.4-10.4); Platelet Count 146 10^3/uL (150-450); Red Blood Count 3.26 10^6 /uL (4.18-5.48); Red Cell Distribution Width 18 % (10-15); White Blood Count 4.8 10^3/uL (3.5-10.8)
[2021-05-10 10:42] LABS: Albumin 2.9 g/dL (3.2-5.2); EGFR African American 128.8 (>60); EGFR Non-African American 106.5 (>60); Potassium 3.3 mmol/L (3.5-5.0); Total Bilirubin 0.5 mg/dL (0.2-1.0); Total Protein 5.9 g/dL (6.4-8.9)
[2021-05-10] MEDS ORDERED: Potassium Chlor 20 meq TAB.ER PO ONE (10:43)
[2021-05-10] MEDS: Polyethylene Glycol 3350 17 GM PACKET PO SCH (13:00)
[2021-05-10] MEDS: methylPREDNISolone SOD 40 mg/ml 1 ml VIAL IV SCH (16:21)
[2021-05-10] MEDS: HYDROmorphone 1 MG/1 ML SYRINGE IV SLOW PU PRN (23:00)
[2021-05-11] MEDS: Enoxaparin 40 MG/0.4 ML SYR SUBCUT SCH ×2 (00:03→20:11)
[2021-05-11] MEDS: ZOSYN 3.375 GM Q8H per EXTENDED INFUSION IV SCH ×3 (04:43→20:10)
[2021-05-11 06:33] LABS: % Iron Saturation 31 % (15-55); Iron 54 ug/dL (50-212); Total Iron Binding Capacity 175 mcg/dL (250-450); Transferrin 125 mg/dL (203-362); Unsaturated Iron Binding < 160 ug/dL
[2021-05-11 06:53] LABS: Ferritin 497.1 ng/mL (24-336)
[2021-05-11 06:57] LABS: Folate 4.09 ng/mL (5.90-24.80)
[2021-05-11 06:58] LABS: Vitamin B12 275 pg/mL (180-914)
[2021-05-11] MEDS: fentaNYL Patch Check Q Shift NOTE FOLLOW UP SCH ×2 (07:20→19:01)
[2021-05-11 08:49] LABS: Hematocrit 25 % (42-52); Hemoglobin 8.5 g/dL (14.0-18.0); Mean Corpuscular HGB Conc 34 g/dL (31-36); Mean Corpuscular Hemoglobin 29 pg (27-31); Mean Corpuscular Volume 83 fL (80-94); Mean Platelet Volume 6.8 fL (7.4-10.4); Platelet Count 153 10^3/uL (150-450); Red Cell Distribution Width 18 % (10-15); White Blood Count 5.1 10^3/uL (3.5-10.8)
[2021-05-11 09:23] LABS: Calcium 8.1 mg/dL (8.6-10.3); EGFR African American 167.3 (>60); EGFR Non-African American 138.3 (>60); Potassium 3.9 mmol/L (3.5-5.0)
[2021-05-11] MEDS: Senna TAB 8.6 mg TAB PO SCH ×2 (10:01→20:11)
[2021-05-11] MEDS: Polyethylene Glycol 3350 17 GM PACKET PO SCH (10:06)
[2021-05-11] MEDS: Nicotine PATCH 21 MG/24 HR PATCH TRANSDERM SCH (10:07)
[2021-05-11] MEDS: methylPREDNISolone SOD 40 mg/ml 1 ml VIAL IV SCH (10:09)
[2021-05-11] MEDS: HYDROmorphone 1 MG/1 ML SYRINGE IV SLOW PU PRN ×3 (11:49→20:10)
[2021-05-12] MEDS: HYDROmorphone 1 MG/1 ML SYRINGE IV SLOW PU PRN ×6 (00:48→21:19)
[2021-05-12] MEDS: ZOSYN 3.375 GM Q8H per EXTENDED INFUSION IV SCH ×2 (04:26→13:08)
[2021-05-12] MEDS: fentaNYL Patch Check Q Shift NOTE FOLLOW UP SCH (07:10)
[2021-05-12 08:32] LABS: ABS Eosinophils 0.1 10^3/ul (0-0.6); ABS Lymphocytes 0.6 10^3/ul (1.0-4.8); ABS Monocytes 0.4 10^3/ul (0-0.8); ABS Neutrophils 4.9 10^3/ul (1.5-7.7); Hematocrit 26 % (42-52); Hemoglobin 8.9 g/dL (14.0-18.0); Lymphocyte % 9.3 %; Mean Corpuscular HGB Conc 34 g/dL (31-36); Mean Corpuscular Hemoglobin 28 pg (27-31); Mean Corpuscular Volume 83 fL (80-94); Mean Platelet Volume 6.3 fL (7.4-10.4); Nucleated Red Blood Cells % 0.3; Platelet Count 167 10^3/uL (150-450); Red Blood Count 3.15 10^6 /uL (4.18-5.48); Red Cell Distribution Width 18 % (10-15)
[2021-05-12] MEDS: Nicotine PATCH 21 MG/24 HR PATCH TRANSDERM SCH (09:15)
[2021-05-12] MEDS: methylPREDNISolone SOD 40 mg/ml 1 ml VIAL IV SCH (09:15)
[2021-05-12] MEDS: Senna TAB 8.6 mg TAB PO SCH ×2 (09:25→21:40)
[2021-05-12] MEDS: Polyethylene Glycol 3350 17 GM PACKET PO SCH (09:25)
[2021-05-12] MEDS ORDERED: oxyCODONE SR 10 mg TAB PO PRN (13:44)
[2021-05-12] MEDS ORDERED: Naloxone Nasal Spray 4 MG/0.1 ML NASAL.SPR INTRANASAL PRN (14:09)
[2021-05-12] MEDS: fentaNYL PATCH 100 MCG/HR 1 PATCH TRANSDERM SCH (18:57)
[2021-05-12] MEDS ORDERED: cefTRIAXone 1 gm/50 mL NS BAG 1 GM/50 ML BAG IVPB SCH (21:00)
[2021-05-12] MEDS: Morphine ER 30 mg TAB ** extended release PO SCH (21:18)
[2021-05-12] MEDS: Enoxaparin 40 MG/0.4 ML SYR SUBCUT SCH (21:19)
[2021-05-13] MEDS: Morphine ER 30 mg TAB ** extended release PO SCH (04:49)
[2021-05-13] MEDS: Senna TAB 8.6 mg TAB PO SCH (09:33)
[2021-05-13] MEDS: methylPREDNISolone SOD 40 mg/ml 1 ml VIAL IV SCH (09:33)
[2021-05-13] MEDS: Nicotine PATCH 21 MG/24 HR PATCH TRANSDERM SCH (09:33)
[2021-05-13] MEDS: Polyethylene Glycol 3350 17 GM PACKET PO SCH (09:34)
[2021-05-13 09:54] VITALS: BP 123/60
== END 2021-05-13 11:45 | disposition home or self-care (01) | DRG 343 ==
LOC: ED 15:52 → MED 15:52 → SUATTDRO 22:04 → MED 05-10 13:59 → SUATTDRO 05-10 16:00
PROVIDERS: ADMIT Student in an Organized Health Care Education/Training Program; ATTEND Internal Medicine

== ENCOUNTER 2022-07-06 07:51 | Inpatient (IN) ==
[2022-07-06] MEDS ORDERED: NS 0.9% 1000 ml BAG 1,000 ML IV ONE (08:26)
[2022-07-06] MEDS ORDERED: Adenosine 3 MG/ML 2 ml VIAL (6 mg) ONE ×2 (08:29→08:33)
[2022-07-06] MEDS ORDERED: Adenosine 3 MG/ML 2 ml VIAL (6 mg) IV PUSH ONE (08:42)
[2022-07-06 09:02] LABS: Hematocrit 24 % (42-52); Hemoglobin 7.6 g/dL (14.0-18.0); Mean Corpuscular HGB Conc 32 g/dL (31-36); Mean Corpuscular Hemoglobin 26 pg (27-31); Mean Corpuscular Volume 81 fL (80-94); Platelet Count 172 10^3/uL (150-450); Red Cell Distribution Width 19 % (10-15); White Blood Count 1.2 10^3/uL (3.5-10.8)
[2022-07-06 09:33] LABS: ABS Neutrophils 0.7 10^3/ul (1.5-7.7)
[2022-07-06 09:34] LABS: ABS Lymphocytes 0.4 10^3/ul (1.0-4.8); ABS Monocytes 0.1 10^3/ul (0-0.8); ABS Nucleated RBC 0.1 10^3/ul; Eosinophil % 1.9 %; Lymphocyte % 33.5 %; Nucleated Red Blood Cells % 4.5
[2022-07-06 09:54] LABS: TSH Ultra Thyroid Stim Horm 0.57 mcIU/mL (0.34-5.60)
[2022-07-06 10:03] LABS: Magnesium 1.1 mg/dL (1.9-2.7); Total Bilirubin 0.6 mg/dL (0.2-1.0)
[2022-07-06] MEDS ORDERED: Magnesium Sulf 4 GM/100 ML IV 4,000 MG/100 ML BAG IVPB ONE (10:04)
[2022-07-06 10:09] LABS: Albumin/Globulin Ratio 1.7 (1-3); Globulin 1.2 g/dL (2-4); Total Protein 3.2 g/dL (6.4-8.9); eGFR CKD-EPI 127.2 (>60)
[2022-07-06 10:11] LABS: Activated Partial Thrombo Time 26.5 seconds (26.0-38.0); INR 1.23 (0.89-1.11)
[2022-07-06 10:13] LABS: Calcium 4.2 mg/dL (8.6-10.3); Potassium 2.4 mmol/L (3.5-5.0)
[2022-07-06] MEDS ORDERED: Potassium Citrate TAB (NF) 15 MEQ TABLET.ER PO ONE (10:15)
[2022-07-06 10:23] LABS: High Sensitivity Troponin 1 Hr 39 pg/mL (<20)
[2022-07-06] MEDS ORDERED: Potassium Chlor 20 meq TAB.ER PO ONE (10:23)
[2022-07-06] MEDS: KCL 20 MEQ/100 ML IVPREMIX 20 MEQ/100 ML BAG IV SCH ×2 (10:41→13:39)
[2022-07-06] MEDS ORDERED: Iohexol 350 (CONTRAST) 500 ML MDV IV ONE (11:09)
[2022-07-06] MEDS ORDERED: Calcium Gluconate 4 GM in NS 0.9% 250 ml 250 ML IVPB ONE (15:09)
[2022-07-06] MEDS ORDERED: Naloxone 0.4 mg VIAL 0.4 mg/ml 1 ml VIAL IV PUSH PRN (15:57)
[2022-07-06] MEDS ORDERED: Lactated Ringers 500 ml BAG 500 ML IV SCH (18:00)
[2022-07-06] MEDS: oxyCODONE SR 40 mg TAB PO SCH ×2 (18:49→21:29)
[2022-07-06] MEDS ORDERED: Polyethylene Glycol 3350 17 GM PACKET PO PRN (19:18)
[2022-07-06] MEDS ORDERED: Senna TAB 8.6 mg TAB PO PRN (19:18)
[2022-07-06] MEDS ORDERED: Magnesium Hydroxide LIQ 30 ML UDC PO PRN (19:18)
[2022-07-06 19:45] LABS: Calcium 7.7 mg/dL (8.6-10.3); Potassium 4.7 mmol/L (3.5-5.0)
[2022-07-06 19:46] LABS: Calcium (PTH Intact) 7.7 mg/dL (8.6-10.3)
[2022-07-06 19:50] LABS: eGFR CKD-EPI 97.8 (>60)
[2022-07-06 19:58] LABS: Phosphorus < 1.0 mg/dL (2.5-5.0)
[2022-07-06] MEDS ORDERED: NS IV ONE ×2 (20:12→22:05)
[2022-07-06] MEDS ORDERED: SODIUM PHOSPHATE IV ONE ×2 (20:12→22:05)
[2022-07-06] MEDS ORDERED: CALCIUM GLUCONATE 1GM/50ML NS 1 GM/50 ML BAG IV ONE (20:20)
[2022-07-06 21:16] LABS: Vitamin D Total 25(OH) 20.2 ng/mL (20-50)
[2022-07-06] MEDS: Magnesium Hydroxide LIQ 30 ML UDC PO SCH (21:26)
[2022-07-07] MEDS ORDERED: Vancomycin 1,000 MG in NS 0.9% 250 ml 250 ML IVPB ONE (02:38)
[2022-07-07] MEDS ORDERED: Vancomycin per Pharmacy 1 EA NOTE FOLLOW UP SCH (03:00)
[2022-07-07] MEDS ORDERED: Vancomycin 1,500 MG in NS 0.9% 250 ml 250 ML IVPB ONE (03:00)
[2022-07-07 06:20] LABS: Hematocrit 29 % (42-52); Hemoglobin 9.8 g/dL (14.0-18.0); Mean Corpuscular HGB Conc 34 g/dL (31-36); Mean Corpuscular Hemoglobin 27 pg (27-31); Mean Corpuscular Volume 81 fL (80-94); Mean Platelet Volume 7.5 fL (7.4-10.4); Platelet Count 193 10^3/uL (150-450); Red Blood Count 3.63 10^6 /uL (4.18-5.48); Red Cell Distribution Width 19 % (10-15); White Blood Count 1.8 10^3/uL (3.5-10.8)
[2022-07-07 07:19] LABS: Calcium 7.4 mg/dL (8.6-10.3)
[2022-07-07 07:25] LABS: eGFR CKD-EPI 103.6 (>60)
[2022-07-07 07:50] LABS: RBC Morphology Normal (Normal)
[2022-07-07 07:54] LABS: ABS Lymphocytes 0.9 10^3/ul (1.0-4.8)
[2022-07-07 07:55] LABS: ABS Neutrophils 0.8 10^3/ul (1.5-7.7)
[2022-07-07 08:17] LABS: Magnesium 2.2 mg/dL (1.9-2.7)
[2022-07-07 08:22] LABS: Phosphorus 2.9 mg/dL (2.5-5.0)
[2022-07-07] MEDS: Calcium (OSCAL) 500 mg TAB PO SCH (10:05)
[2022-07-07] MEDS: Cholecalciferol (VIT D3) 1,000 unit TAB PO SCH (10:05)
[2022-07-07] MEDS: Aspirin EC 81 mg TAB.EC (enteric coated) PO SCH (10:05)
[2022-07-07] MEDS: oxyCODONE SR 40 mg TAB PO SCH ×3 (10:06→21:58)
[2022-07-07] MEDS: Potassium Chlor 20 meq TAB.ER PO SCH (10:07)
[2022-07-07] MEDS: Magnesium Hydroxide LIQ 30 ML UDC PO SCH ×3 (10:07→22:02)
[2022-07-07] MEDS ORDERED: Vancomycin 1000 MG in NS 0.9% 250 ML IVPB SCH (12:00)
[2022-07-07] MEDS ORDERED: NS 0.9% 500 ml BAG 500 ML IV SCH (16:00)
[2022-07-08 06:48] LABS: Hematocrit 28 % (42-52); Hemoglobin 9.2 g/dL (14.0-18.0); Mean Corpuscular HGB Conc 33 g/dL (31-36); Mean Corpuscular Hemoglobin 27 pg (27-31); Mean Corpuscular Volume 82 fL (80-94); Mean Platelet Volume 7.4 fL (7.4-10.4); Platelet Count 177 10^3/uL (150-450); Red Blood Count 3.42 10^6 /uL (4.18-5.48); Red Cell Distribution Width 19 % (10-15); White Blood Count 6.4 10^3/uL (3.5-10.8)
[2022-07-08 07:18] LABS: Calcium 7.6 mg/dL (8.6-10.3); Magnesium 1.9 mg/dL (1.9-2.7); Phosphorus 1.6 mg/dL (2.5-5.0); Potassium 3.8 mmol/L (3.5-5.0); eGFR CKD-EPI 105.6 (>60)
[2022-07-08] MEDS: Magnesium Hydroxide LIQ 30 ML UDC PO SCH (07:27)
[2022-07-08] MEDS ORDERED: Potassium Chlor 20 meq TAB.ER PO ONE (08:54)
[2022-07-08] MEDS: oxyCODONE SR 40 mg TAB PO SCH ×2 (08:59→13:18)
[2022-07-08] MEDS ORDERED: Sodium Phosphate IV 15 MMOLE in NS 0.9% 250 ml 250 ML IV ONE (09:00)
[2022-07-08] MEDS: Cholecalciferol (VIT D3) 1,000 unit TAB PO SCH (09:00)
[2022-07-08] MEDS: Calcium (OSCAL) 500 mg TAB PO SCH (09:00)
[2022-07-08] MEDS: Aspirin EC 81 mg TAB.EC (enteric coated) PO SCH (09:01)
[2022-07-08] MEDS: Potassium Chlor 20 meq TAB.ER PO SCH (09:03)
[2022-07-08 09:19] LABS: ABS Lymphocytes 0.7 10^3/ul (1.0-4.8); ABS Monocytes 0.3 10^3/ul (0-0.8); ABS Neutrophils 5.4 10^3/ul (1.5-7.7); Anisocytosis 2+; Eosinophil % 0.2 %; Lymphocyte % 10.7 %; Nucleated Red Blood Cells % 0.5; Polychromasia 1+
[2022-07-08] MEDS ORDERED: Magnesium Sulfate IV 3 GM in NS 0.9% 100 ml BAG 100 ML IVPB ONE (10:00)
[2022-07-08] MEDS ORDERED: Vancomycin Trough Check NOTE FOLLOW UP ONE (11:30)
[2022-07-08 16:13] VITALS: BP 112/69
[2022-07-08 17:57] LABS: Magnesium 2.5 mg/dL (1.9-2.7); Phosphorus 1.7 mg/dL (2.5-5.0); Potassium 3.8 mmol/L (3.5-5.0)
[2022-07-09] MEDS ORDERED: Calcium (OSCAL) 500 mg TAB PO SCH (09:00)
== END 2022-07-08 19:30 | disposition home or self-care (01) | DRG 281 ==
LOC: SUATTDRO → ED 07:51 → EDHOLD 14:29 → MEDTELE 07-07 09:26
PROVIDERS: ADMIT Internal Medicine; ATTEND Internal Medicine

== ENCOUNTER 2022-07-28 09:41 | Inpatient (IN) ==
[2022-07-28 10:42] LABS: Hematocrit 25 % (42-52); Hemoglobin 8.2 g/dL (14.0-18.0); Mean Corpuscular HGB Conc 32 g/dL (31-36); Mean Corpuscular Hemoglobin 27 pg (27-31); Mean Corpuscular Volume 84 fL (80-94); Mean Platelet Volume 7.7 fL (7.4-10.4); Platelet Count 213 10^3/uL (150-450); Red Blood Count 3.01 10^6 /uL (4.18-5.48); Red Cell Distribution Width 22 % (10-15); White Blood Count 6.8 10^3/uL (3.5-10.8)
[2022-07-28] MEDS ORDERED: dilTIAZem (ADVAN VIAL) 125 MG/125 ML ADDV.BAG IV SCH (11:00)
[2022-07-28 11:01] LABS: Albumin 3.7 g/dL (3.2-5.2); Albumin/Globulin Ratio 1.8 (1-3); Calcium 7.7 mg/dL (8.6-10.3); Globulin 2.1 g/dL (2-4); Magnesium 2.1 mg/dL (1.9-2.7); Potassium 4.2 mmol/L (3.5-5.0); Total Protein 5.8 g/dL (6.4-8.9); eGFR CKD-EPI 98.2 (>60)
[2022-07-28 11:08] LABS: Anisocytosis 2+
[2022-07-28 11:09] LABS: ABS Basophils 0.1 10^3/ul (0-0.2); ABS Monocytes 0.5 10^3/ul (0-0.8); ABS Neutrophils 5.2 10^3/ul (1.5-7.7); ABS Nucleated RBC 0.1 10^3/ul; Basophilic Stippling 1+; Eosinophil % 0.5 %; Nucleated Red Blood Cells % 1.7; Polychromasia 1+
[2022-07-28 11:47] LABS: Activated Partial Thrombo Time 26.6 seconds (26.0-38.0); INR 1.33 (0.89-1.11)
[2022-07-28 12:05] LABS: High Sensitivity Troponin 1 Hr 11 pg/mL (<20)
[2022-07-28] MEDS ORDERED: Iohexol 350 (CONTRAST) 500 ML MDV IV ONE (12:18)
[2022-07-28] MEDS ORDERED: Enoxaparin 40 MG/0.4 ML SYR SUBCUT SCH (15:00)
[2022-07-28] MEDS ORDERED: Polyethylene Glycol 3350 17 GM PACKET PO PRN (15:29)
[2022-07-28] MEDS ORDERED: Magnesium Hydroxide LIQ 30 ML UDC PO PRN (15:29)
[2022-07-28] MEDS ORDERED: Senna TAB 8.6 mg TAB PO PRN (15:29)
[2022-07-28] MEDS ORDERED: Furosemide 20 mg/2 ml IV VIAL IV ONE (16:46)
[2022-07-29] MEDS ORDERED: oxyCODONE SR 40 mg TAB PO SCH ×2 (04:00→09:00)
[2022-07-29 06:03] LABS: Hematocrit 25 % (42-52); Mean Corpuscular HGB Conc 32 g/dL (31-36); Mean Corpuscular Hemoglobin 27 pg (27-31); Mean Corpuscular Volume 84 fL (80-94); Mean Platelet Volume 7.8 fL (7.4-10.4); Platelet Count 200 10^3/uL (150-450); Red Blood Count 2.99 10^6 /uL (4.18-5.48); Red Cell Distribution Width 22 % (10-15)
[2022-07-29 06:34] LABS: Calcium 7.1 mg/dL (8.6-10.3); Magnesium 1.9 mg/dL (1.9-2.7); Potassium 3.2 mmol/L (3.5-5.0); eGFR CKD-EPI 101.4 (>60)
[2022-07-29] MEDS ORDERED: Potassium Chlor 20 meq TAB.ER PO ONE (07:22)
[2022-07-29] MEDS: Calcium (OSCAL) 500 mg TAB PO SCH (08:56)
[2022-07-29] MEDS: Fluticasone NASAL SPRAY 50MCG 16 gm SPRAY BTL BOTH NARES SCH (08:57)
[2022-07-29] MEDS: Polyethylene Glycol 3350 17 GM PACKET PO SCH (08:57)
[2022-07-29] MEDS: Potassium Chlor 20 meq TAB.ER PO SCH (08:57)
[2022-07-29] MEDS: Potassium & Sodium Phos 250 mg = 1 PACKET PO SCH ×4 (08:57→20:10)
[2022-07-29] MEDS ORDERED: Metoprolol Tartrate 5 mg VIAL 5 ml VIAL (1 mg/ml) IV PRN (09:07)
[2022-07-29] MEDS: ABIRATERONE 500 MG PO SCH (12:47)
[2022-07-29] MEDS: oxyCODONE SR 40 mg TAB PO SCH ×2 (13:18→20:10)
[2022-07-29 14:30] LABS: Blood Urea Nitrogen 19 mg/dL (6-24); CO2 Carbon Dioxide 27 mmol/L (22-32); Calcium 7.3 mg/dL (8.6-10.3); Chloride 103 mmol/L (101-111); Glucose 96 mg/dL (70-100); Sodium 136 mmol/L (135-145); eGFR CKD-EPI 98.6 (>60)
[2022-07-29 14:37] LABS: Anion Gap 6 mmol/L (2-11)
[2022-07-30 05:48] LABS: Calcium 7.3 mg/dL (8.6-10.3); Magnesium 1.9 mg/dL (1.9-2.7); Potassium 4.1 mmol/L (3.5-5.0); eGFR CKD-EPI 85.6 (>60)
[2022-07-30] MEDS ORDERED: Magnesium Sulfate IV 3 GM in NS 0.9% 100 ml BAG 100 ML IVPB ONE (06:36)
[2022-07-30] MEDS: ABIRATERONE 500 MG PO SCH ×3 (09:00→20:41)
[2022-07-30] MEDS: Potassium & Sodium Phos 250 mg = 1 PACKET PO SCH ×4 (09:39→20:41)
[2022-07-30] MEDS: Polyethylene Glycol 3350 17 GM PACKET PO SCH (09:39)
[2022-07-30] MEDS: Fluticasone NASAL SPRAY 50MCG 16 gm SPRAY BTL BOTH NARES SCH (09:40)
[2022-07-30 09:46] LABS: Hematocrit 25 % (42-52); Hemoglobin 7.6 g/dL (14.0-18.0); Mean Corpuscular HGB Conc 31 g/dL (31-36); Mean Corpuscular Hemoglobin 27 pg (27-31); Mean Corpuscular Volume 86 fL (80-94); Platelet Count 210 10^3/uL (150-450); Red Blood Count 2.88 10^6 /uL (4.18-5.48); Red Cell Distribution Width 23 % (10-15); White Blood Count 12.5 10^3/uL (3.5-10.8)
[2022-07-30] MEDS: oxyCODONE SR 40 mg TAB PO SCH ×3 (09:50→20:41)
[2022-07-30] MEDS: Potassium Chlor 20 meq TAB.ER PO SCH (09:51)
[2022-07-30] MEDS: Calcium (OSCAL) 500 mg TAB PO SCH (09:52)
[2022-07-30 11:05] LABS: Anisocytosis 3+; Polychromasia 2+
[2022-07-30 11:06] LABS: ABS Basophils 0.1 10^3/ul (0-0.2); ABS Monocytes 0.1 10^3/ul (0-0.8); ABS Neutrophils 11.3 10^3/ul (1.5-7.7); ABS Nucleated RBC 0.4 10^3/ul; Eosinophil % 0.2 %; Lymphocyte % 8.2 %; Nucleated Red Blood Cells % 3.3
[2022-07-30 11:13] LABS: Albumin 3.3 g/dL (3.2-5.2); Albumin/Globulin Ratio 1.8 (1-3); Direct Bilirubin 0.1 mg/dL (0.03-0.18); Globulin 1.8 g/dL (2-4); Indirect Bilirubin 0.5 mg/dL (0.3-1.0); Total Bilirubin 0.6 mg/dL (0.2-1.0); Total Protein 5.1 g/dL (6.4-8.9)
[2022-07-30 11:32] LABS: Ferritin 231.4 ng/mL (24-336)
[2022-07-30 12:11] LABS: Hematocrit 26 % (42-52); Hemoglobin 8.1 g/dL (14.0-18.0); Mean Corpuscular HGB Conc 31 g/dL (31-36); Mean Corpuscular Hemoglobin 26 pg (27-31); Mean Corpuscular Volume 85 fL (80-94); Mean Platelet Volume 7.4 fL (7.4-10.4); Platelet Count 209 10^3/uL (150-450); Red Blood Count 3.09 10^6 /uL (4.18-5.48); Red Cell Distribution Width 22 % (10-15); White Blood Count 6.6 10^3/uL (3.5-10.8)
[2022-07-30] MEDS ORDERED: Digoxin IV 0.5 MG/2 ML AMP (0.25 MG/ML) IV SLOW PU ONE ×2 (12:14→17:04)
[2022-07-30] MEDS ORDERED: Metoprolol Tartrate 5 mg VIAL 5 ml VIAL (1 mg/ml) IV PRN (12:14)
[2022-07-30] MEDS ORDERED: Furosemide 40 mg/4 ml IV VIAL IV STA (12:18)
[2022-07-30 12:40] LABS: Venous Bicarbonate HCO3 20.1 mmol/L (24-28)
[2022-07-30 12:45] LABS: PCO2 Arterial 23 mmHg (35-45); PO2 Arterial 150 mmHg (80-100)
[2022-07-30 12:47] LABS: INR 1.34 (0.89-1.11); Platelet Count 217 10^3/ul (150-450)
[2022-07-30] MEDS ORDERED: NS 0.9% 250 ml 250 ML IV ONE (12:50)
[2022-07-30 12:55] LABS: Activated Partial Thrombo Time 26.9 seconds (26.0-38.0); Fibrinogen 444.2 mg/dL (110.8-404.3); INR 1.33 (0.89-1.11)
[2022-07-30 13:04] LABS: Anisocytosis 3+
[2022-07-30 13:05] LABS: Polychromasia 3+
[2022-07-30] MEDS ORDERED: Piperacillin/Tazobac ADVAN 3.375 GM in NS 0.9% 100 ml BAG 100 ML IV ONE (13:08)
[2022-07-30 13:11] LABS: Schistocytes ABSENT
[2022-07-30] MEDS ORDERED: Zosyn per Pharmacy NOTE FOLLOW UP SCH (14:00)
[2022-07-30] MEDS ORDERED: Morphine 2 MG/ML SYRINGE IV ONE (14:06)
[2022-07-30] MEDS: Linezolid 600 MG IVPREMIX(*) 600 MG/300 ML BAG IVPB SCH (14:29)
[2022-07-30 16:42] LABS: Urine Appearance Cloudy; Urine Bilirubin Negative (Negative); Urine Blood 1+ (Negative); Urine Color Yellow; Urine Glucose Negative (Negative); Urine Ketones Negative (Negative); Urine Nitrite Positive (Negative); Urine Protein Negative (Negative); Urine Specific Gravity 1.011 (1.002-1.030); Urine Urobilinogen Negative (Negative)
[2022-07-30 16:44] LABS: Urine Bacteria 1+ (Absent); Urine Red Blood Cell Trace(0-2/hpf) (Absent); Urine Squamous Epithelial Cell Present (Absent); Urine White Blood Cell 3+(>20/hpf) (Absent)
[2022-07-30] MEDS: Azithromycin 500 mg/250 ml NS 500 MG/250 ML BAG IVPB SCH (17:16)
[2022-07-30] MEDS: ZOSYN 3.375 GM Q8H per EXTENDED INFUSION IV SCH (18:35)
[2022-07-30 21:09] LABS: PCO2 Arterial 34 mmHg (35-45); PO2 Arterial 72 mmHg (80-100)
[2022-07-30] MEDS ORDERED: Hydrocortisone INJ 100 MG/2ML 2 ML VIAL IV ONE (21:18)
[2022-07-31] MEDS ORDERED: Norepinephrine 16MCG/ML BAGD5W 4,000 MCG/250 ML BAG IV SCH (02:00)
[2022-07-31] MEDS: Linezolid 600 MG IVPREMIX(*) 600 MG/300 ML BAG IVPB SCH (02:25)
[2022-07-31] MEDS: ZOSYN 3.375 GM Q8H per EXTENDED INFUSION IV SCH (02:25)
[2022-07-31 05:37] LABS: Corrected Retic Count 4.4 % (0.5-1.5); Hematocrit 23 % (42-52); Hematocrit for Retic CNT 23 % (42-52); Immature Retic Fraction 0.64; Mean Corpuscular HGB Conc 31 g/dL (31-36); Mean Corpuscular Hemoglobin 26 pg (27-31); Mean Corpuscular Volume 86 fL (80-94); Mean Platelet Volume 7.8 fL (7.4-10.4); Platelet Count 157 10^3/uL (150-450); RBC Retic Count 2.65 10^6/uL (4.18-5.48); Red Blood Count 2.65 10^6 /uL (4.18-5.48); Red Cell Distribution Width 23 % (10-15)
[2022-07-31] MEDS: Hydrocortisone INJ 100 MG/2ML 2 ML VIAL IV SCH ×3 (05:37→20:36)
[2022-07-31 06:18] LABS: Digoxin 1.1 ng/ml (0.8-2.0); Magnesium 2.3 mg/dL (1.9-2.7); Phosphorus 2.7 mg/dL (2.5-5.0); eGFR CKD-EPI 64.5 (>60)
[2022-07-31 07:43] LABS: ABS Lymphocytes 0.5 10^3/ul (1.0-4.8); ABS Monocytes 0.5 10^3/ul (0-0.8); ABS Neutrophils 16.9 10^3/ul (1.5-7.7); ABS Nucleated RBC 0.1 10^3/ul; Eosinophil % 0.1 %; Lymphocyte % 2.9 %; Nucleated Red Blood Cells % 0.5
[2022-07-31] MEDS: oxyCODONE SR 40 mg TAB PO SCH ×3 (09:42→21:02)
[2022-07-31] MEDS: ABIRATERONE 500 MG PO SCH (09:43)
[2022-07-31] MEDS: Polyethylene Glycol 3350 17 GM PACKET PO SCH (09:44)
[2022-07-31] MEDS: Fluticasone NASAL SPRAY 50MCG 16 gm SPRAY BTL BOTH NARES SCH (09:44)
[2022-07-31] MEDS: Potassium Chlor 20 meq TAB.ER PO SCH (09:44)
[2022-07-31] MEDS: Potassium & Sodium Phos 250 mg = 1 PACKET PO SCH ×4 (09:44→23:01)
[2022-07-31] MEDS: Calcium (OSCAL) 500 mg TAB PO SCH (09:44)
[2022-07-31] MEDS: Pantoprazole VIAL 40 MG VIAL IV SCH ×2 (13:40→20:36)
[2022-07-31] MEDS: cefTRIAXone 1 gm/50 mL D5W 1 GM/50 ML BAG IV SCH (16:10)
[2022-07-31] MEDS: Azithromycin 500 mg/250 ml NS 500 MG/250 ML BAG IVPB SCH (16:10)
[2022-08-01] MEDS: Hydrocortisone INJ 100 MG/2ML 2 ML VIAL IV SCH (04:11)
[2022-08-01 06:25] LABS: Hematocrit 24 % (42-52); Hemoglobin 7.7 g/dL (14.0-18.0); Mean Corpuscular HGB Conc 32 g/dL (31-36); Mean Corpuscular Hemoglobin 28 pg (27-31); Mean Corpuscular Volume 85 fL (80-94); Mean Platelet Volume 7.4 fL (7.4-10.4); Platelet Count 123 10^3/uL (150-450); Red Blood Count 2.79 10^6 /uL (4.18-5.48); Red Cell Distribution Width 22 % (10-15)
[2022-08-01 06:48] LABS: ABS Basophils 0.3 10^3/ul (0-0.2); ABS Lymphocytes 0.9 10^3/ul (1.0-4.8); ABS Monocytes 0.7 10^3/ul (0-0.8); ABS Neutrophils 23.1 10^3/ul (1.5-7.7); ABS Nucleated RBC 0.2 10^3/ul; Lymphocyte % 3.6 %; Nucleated Red Blood Cells % 0.6
[2022-08-01 07:10] LABS: Calcium 6.9 mg/dL (8.6-10.3); Magnesium 2.2 mg/dL (1.9-2.7); eGFR CKD-EPI 95.4 (>60)
[2022-08-01 07:11] LABS: Potassium 5.2 mmol/L (3.5-5.0)
[2022-08-01] MEDS: Potassium & Sodium Phos 250 mg = 1 PACKET PO SCH ×4 (08:38→21:22)
[2022-08-01] MEDS: Polyethylene Glycol 3350 17 GM PACKET PO SCH (08:39)
[2022-08-01] MEDS: Calcium (OSCAL) 500 mg TAB PO SCH (08:39)
[2022-08-01] MEDS: oxyCODONE SR 40 mg TAB PO SCH ×2 (08:40→13:39)
[2022-08-01] MEDS: Potassium Chlor 20 meq TAB.ER PO SCH (08:41)
[2022-08-01] MEDS: Fluticasone NASAL SPRAY 50MCG 16 gm SPRAY BTL BOTH NARES SCH (08:42)
[2022-08-01] MEDS: Pantoprazole VIAL 40 MG VIAL IV SCH ×2 (08:42→21:26)
[2022-08-01] MEDS ORDERED: oxyCODONE SR 20 mg TAB PO SCH (13:00)
[2022-08-01] MEDS: oxyCODONE SR 20 mg TAB PO SCH ×2 (13:28→21:21)
[2022-08-01] MEDS: cefTRIAXone 1 gm/50 mL NS BAG 1 GM/50 ML BAG IVPB SCH (16:26)
[2022-08-01] MEDS: cefTRIAXone 1 gm/50 mL D5W 1 GM/50 ML BAG IV SCH (16:28)
[2022-08-02 06:39] LABS: Hematocrit 24 % (42-52); Hemoglobin 7.7 g/dL (14.0-18.0); Mean Corpuscular HGB Conc 32 g/dL (31-36); Mean Corpuscular Hemoglobin 27 pg (27-31); Mean Corpuscular Volume 85 fL (80-94); Mean Platelet Volume 7.8 fL (7.4-10.4); Platelet Count 105 10^3/uL (150-450); Red Blood Count 2.81 10^6 /uL (4.18-5.48); Red Cell Distribution Width 22 % (10-15); White Blood Count 23.4 10^3/uL (3.5-10.8)
[2022-08-02 06:46] LABS: ABS Basophils 0.1 10^3/ul (0-0.2); ABS Monocytes 0.7 10^3/ul (0-0.8); ABS Neutrophils 21.6 10^3/ul (1.5-7.7); ABS Nucleated RBC 0.1 10^3/ul; Eosinophil % 0.1 %; Lymphocyte % 4.1 %; Nucleated Red Blood Cells % 0.5
[2022-08-02 06:53] LABS: Calcium 6.9 mg/dL (8.6-10.3); Magnesium 2.1 mg/dL (1.9-2.7); Potassium 4.9 mmol/L (3.5-5.0); eGFR CKD-EPI 84.5 (>60)
[2022-08-02] MEDS: Potassium & Sodium Phos 250 mg = 1 PACKET PO SCH ×4 (09:24→20:51)
[2022-08-02] MEDS: Fluticasone NASAL SPRAY 50MCG 16 gm SPRAY BTL BOTH NARES SCH (09:25)
[2022-08-02] MEDS: oxyCODONE SR 20 mg TAB PO SCH ×3 (09:25→20:53)
[2022-08-02] MEDS: Calcium (OSCAL) 500 mg TAB PO SCH (09:26)
[2022-08-02] MEDS: Potassium Chlor 20 meq TAB.ER PO SCH (09:26)
[2022-08-02] MEDS: Polyethylene Glycol 3350 17 GM PACKET PO SCH (09:27)
[2022-08-02] MEDS: Pantoprazole VIAL 40 MG VIAL IV SCH ×2 (09:27→20:52)
[2022-08-02] MEDS ORDERED: Metoprolol Tartrate 5 mg VIAL 5 ml VIAL (1 mg/ml) IV PRN (09:41)
[2022-08-02] MEDS: Metoprolol Tartrate 5 mg VIAL 5 ml VIAL (1 mg/ml) IV PRN (10:56)
[2022-08-02] MEDS ORDERED: Naloxone 0.4 mg VIAL 0.4 mg/ml 1 ml VIAL IV PUSH PRN (14:57)
[2022-08-02] MEDS: cefTRIAXone 1 gm/50 mL NS BAG 1 GM/50 ML BAG IVPB SCH (18:26)
[2022-08-03] MEDS: Metoprolol Tartrate 5 mg VIAL 5 ml VIAL (1 mg/ml) IV PRN (00:02)
[2022-08-03 05:45] LABS: PCO2 Arterial 39 mmHg (35-45); PO2 Arterial 80 mmHg (80-100)
[2022-08-03 06:43] LABS: Hematocrit 24 % (42-52); Hemoglobin 7.5 g/dL (14.0-18.0); Mean Corpuscular HGB Conc 32 g/dL (31-36); Mean Corpuscular Hemoglobin 27 pg (27-31); Mean Corpuscular Volume 85 fL (80-94); Red Blood Count 2.78 10^6 /uL (4.18-5.48); Red Cell Distribution Width 22 % (10-15); White Blood Count 16.6 10^3/uL (3.5-10.8)
[2022-08-03 06:56] LABS: Albumin 3.4 g/dL (3.2-5.2); Albumin/Globulin Ratio 1.7 (1-3); Calcium 6.9 mg/dL (8.6-10.3); Magnesium 1.9 mg/dL (1.9-2.7); Potassium 4.2 mmol/L (3.5-5.0); Total Bilirubin 0.7 mg/dL (0.2-1.0); Total Protein 5.4 g/dL (6.4-8.9)
[2022-08-03 07:03] LABS: ABS Monocytes 0.6 10^3/ul (0-0.8); ABS Neutrophils 15.1 10^3/ul (1.5-7.7); ABS Nucleated RBC 0.3 10^3/ul; Eosinophil % 0.1 %; Lymphocyte % 5.8 %; Mean Platelet Volume 7.7 fL (7.4-10.4); Nucleated Red Blood Cells % 1.5; Platelet Count 79 10^3/uL (150-450)
[2022-08-03] MEDS: oxyCODONE SR 20 mg TAB PO SCH ×3 (08:53→21:28)
[2022-08-03] MEDS: Potassium Chlor 20 meq TAB.ER PO SCH (08:54)
[2022-08-03] MEDS: Calcium (OSCAL) 500 mg TAB PO SCH (08:54)
[2022-08-03] MEDS: Potassium & Sodium Phos 250 mg = 1 PACKET PO SCH ×4 (08:55→21:27)
[2022-08-03] MEDS: Pantoprazole VIAL 40 MG VIAL IV SCH ×2 (08:55→21:26)
[2022-08-03] MEDS: Polyethylene Glycol 3350 17 GM PACKET PO SCH (09:14)
[2022-08-03] MEDS: Fluticasone NASAL SPRAY 50MCG 16 gm SPRAY BTL BOTH NARES SCH (11:10)
[2022-08-03] MEDS: cefTRIAXone 1 gm/50 mL NS BAG 1 GM/50 ML BAG IVPB SCH (17:46)
[2022-08-04 07:14] LABS: Hematocrit 24 % (42-52); Hemoglobin 7.8 g/dL (14.0-18.0); Mean Corpuscular HGB Conc 33 g/dL (31-36); Mean Corpuscular Hemoglobin 27 pg (27-31); Mean Corpuscular Volume 85 fL (80-94); Mean Platelet Volume 7.8 fL (7.4-10.4); Platelet Count 73 10^3/uL (150-450); Red Blood Count 2.86 10^6 /uL (4.18-5.48); Red Cell Distribution Width 22 % (10-15); White Blood Count 15.4 10^3/uL (3.5-10.8)
[2022-08-04 07:31] LABS: Calcium 6.9 mg/dL (8.6-10.3); Potassium 4.3 mmol/L (3.5-5.0)
[2022-08-04] MEDS: Potassium Chlor 20 meq TAB.ER PO SCH (08:21)
[2022-08-04] MEDS: Calcium (OSCAL) 500 mg TAB PO SCH (08:21)
[2022-08-04] MEDS: oxyCODONE SR 20 mg TAB PO SCH ×3 (08:24→21:32)
[2022-08-04 08:27] LABS: Basophilic Stippling 1+; Polychromasia 1+
[2022-08-04 08:28] LABS: Tear Drop Cells 1+
[2022-08-04 08:29] LABS: Anisocytosis 2+
[2022-08-04 08:31] LABS: ABS Basophils 0.1 10^3/ul (0-0.2); ABS Lymphocytes 1.2 10^3/ul (1.0-4.8); ABS Monocytes 0.6 10^3/ul (0-0.8); ABS Neutrophils 13.5 10^3/ul (1.5-7.7); ABS Nucleated RBC 0.4 10^3/ul; Eosinophil % 0.1 %; Lymphocyte % 7.9 %; Nucleated Red Blood Cells % 2.3
[2022-08-04] MEDS: Potassium & Sodium Phos 250 mg = 1 PACKET PO SCH ×4 (08:32→21:33)
[2022-08-04] MEDS: Fluticasone NASAL SPRAY 50MCG 16 gm SPRAY BTL BOTH NARES SCH (08:33)
[2022-08-04] MEDS: Pantoprazole VIAL 40 MG VIAL IV SCH ×2 (08:33→21:34)
[2022-08-04] MEDS: Polyethylene Glycol 3350 17 GM PACKET PO SCH (08:34)
[2022-08-05 07:06] LABS: Hematocrit 24 % (42-52); Hemoglobin 7.5 g/dL (14.0-18.0); Mean Corpuscular HGB Conc 31 g/dL (31-36); Mean Corpuscular Hemoglobin 27 pg (27-31); Mean Corpuscular Volume 85 fL (80-94); Mean Platelet Volume 7.7 fL (7.4-10.4); Platelet Count 71 10^3/uL (150-450); Red Blood Count 2.78 10^6 /uL (4.18-5.48); Red Cell Distribution Width 22 % (10-15); White Blood Count 11.9 10^3/uL (3.5-10.8)
[2022-08-05] MEDS: oxyCODONE SR 20 mg TAB PO SCH ×3 (09:18→22:47)
[2022-08-05] MEDS: Calcium (OSCAL) 500 mg TAB PO SCH (09:20)
[2022-08-05 09:23] LABS: Calcium 6.8 mg/dL (8.6-10.3); eGFR CKD-EPI 102.7 (>60)
[2022-08-05] MEDS: Potassium & Sodium Phos 250 mg = 1 PACKET PO SCH ×5 (09:23→22:50)
[2022-08-05 09:26] LABS: Potassium 5.3 mmol/L (3.5-5.0)
[2022-08-05] MEDS: Polyethylene Glycol 3350 17 GM PACKET PO SCH (09:35)
[2022-08-05] MEDS: Pantoprazole VIAL 40 MG VIAL IV SCH ×2 (09:36→22:50)
[2022-08-05] MEDS: Potassium Chlor 20 meq TAB.ER PO SCH (09:41)
[2022-08-05 09:51] LABS: Hypochromasia 1+
[2022-08-05 09:52] LABS: ABS Basophils 0.1 10^3/ul (0-0.2); ABS Lymphocytes 1.4 10^3/ul (1.0-4.8); ABS Monocytes 0.8 10^3/ul (0-0.8); ABS Neutrophils 9.6 10^3/ul (1.5-7.7); ABS Nucleated RBC 0.3 10^3/ul; Anisocytosis 2+; Basophilic Stippling 1+; Eosinophil % 0.2 %; Lymphocyte % 11.8 %; Nucleated Red Blood Cells % 2.1; Polychromasia 1+
[2022-08-05] MEDS: Fluticasone NASAL SPRAY 50MCG 16 gm SPRAY BTL BOTH NARES SCH (10:04)
[2022-08-05] MEDS ORDERED: SODIUM ZIRCONIUM CYCLOSILICATE 10 GM PACKET PO ONE (10:30)
[2022-08-05 18:11] LABS: Calcium 6.8 mg/dL (8.6-10.3); Magnesium 1.5 mg/dL (1.9-2.7); Potassium 3.9 mmol/L (3.5-5.0); eGFR CKD-EPI 106.6 (>60)
[2022-08-05] MEDS ORDERED: Magnesium Sulfate IV 3 GM in NS 0.9% 100 ml BAG 100 ML IVPB ONE (19:32)
[2022-08-06 06:12] LABS: Hematocrit 25 % (42-52); Hemoglobin 7.9 g/dL (14.0-18.0); Mean Corpuscular HGB Conc 32 g/dL (31-36); Mean Corpuscular Hemoglobin 27 pg (27-31); Mean Corpuscular Volume 86 fL (80-94); Mean Platelet Volume 7.7 fL (7.4-10.4); Platelet Count 82 10^3/uL (150-450); Red Blood Count 2.89 10^6 /uL (4.18-5.48); Red Cell Distribution Width 23 % (10-15); White Blood Count 10.3 10^3/uL (3.5-10.8)
[2022-08-06 06:28] LABS: Magnesium 2.1 mg/dL (1.9-2.7); Potassium 4.2 mmol/L (3.5-5.0); eGFR CKD-EPI 101.4 (>60)
[2022-08-06] MEDS: oxyCODONE SR 20 mg TAB PO SCH ×3 (08:37→20:41)
[2022-08-06] MEDS: Calcium (OSCAL) 500 mg TAB PO SCH (08:37)
[2022-08-06] MEDS: Pantoprazole VIAL 40 MG VIAL IV SCH ×2 (08:38→20:39)
[2022-08-06] MEDS: Potassium Chlor 20 meq TAB.ER PO SCH (08:38)
[2022-08-06] MEDS: Potassium & Sodium Phos 250 mg = 1 PACKET PO SCH ×4 (08:38→21:00)
[2022-08-06] MEDS: Polyethylene Glycol 3350 17 GM PACKET PO SCH (08:40)
[2022-08-06] MEDS: Fluticasone NASAL SPRAY 50MCG 16 gm SPRAY BTL BOTH NARES SCH (08:42)
[2022-08-06] MEDS ORDERED: Furosemide 40 mg/4 ml IV VIAL IV SLOW PU ONE ×2 (08:43→14:43)
[2022-08-06 08:44] LABS: ABS Lymphocytes 1.4 10^3/ul (1.0-4.8); ABS Monocytes 0.8 10^3/ul (0-0.8); ABS Nucleated RBC 0.4 10^3/ul; Anisocytosis 2+; Eosinophil % 0.2 %; Nucleated Red Blood Cells % 3.6; Polychromasia 1+
[2022-08-06 10:33] LABS: Adenovirus F40/41 Negative (Negative); Astrovirus Negative (Negative); Cryptosporidium species Negative (Negative); Cyclospora cayetanensis Negative (Negative); Entamoeba histolytica Negative (Negative); Enteroaggregative E.coli(EAEC) Negative (Negative); Enteropathogenic Ecoli(EPEC) Negative (Negative); Enterotoxigenic Ecoli(ETEC) Negative (Negative); Norovirus GI/GII Negative (Negative); Plesiomonas shigelloides Negative (Negative); Salmonella species Negative (Negative); Sapovirus Negative (Negative); Shiga toxin producing E. coli Negative (Negative); Shigella/Enteroinvasive E.coli Negative (Negative); Specimen Source STOOL; Vibrio cholerae Negative (Negative); Yersinia species Negative (Negative)
[2022-08-06] MEDS ORDERED: Fluticasone NASAL SPRAY 50MCG 16 gm SPRAY BTL BOTH NARES ONE (14:42)
[2022-08-06] MEDS ORDERED: Metoprolol Tartrate 5 mg VIAL 5 ml VIAL (1 mg/ml) IV ONE (16:19)
[2022-08-07 07:17] LABS: Hematocrit 24 % (42-52); Hemoglobin 7.6 g/dL (14.0-18.0); Mean Corpuscular HGB Conc 32 g/dL (31-36); Mean Corpuscular Hemoglobin 28 pg (27-31); Mean Corpuscular Volume 86 fL (80-94); Mean Platelet Volume 7.8 fL (7.4-10.4); Platelet Count 88 10^3/uL (150-450); Red Blood Count 2.72 10^6 /uL (4.18-5.48); Red Cell Distribution Width 23 % (10-15); White Blood Count 9.4 10^3/uL (3.5-10.8)
[2022-08-07 07:27] LABS: Albumin 3.2 g/dL (3.2-5.2); Albumin/Globulin Ratio 1.7 (1-3); Calcium 6.6 mg/dL (8.6-10.3); Globulin 1.9 g/dL (2-4); Magnesium 1.7 mg/dL (1.9-2.7); Potassium 3.8 mmol/L (3.5-5.0); Total Bilirubin 0.8 mg/dL (0.2-1.0); Total Protein 5.1 g/dL (6.4-8.9); eGFR CKD-EPI 104.1 (>60)
[2022-08-07] MEDS ORDERED: Magnesium Sulf 4 GM/100 ML IV 4,000 MG/100 ML BAG IVPB ONE (07:30)
[2022-08-07 08:22] LABS: Anisocytosis 2+; Polychromasia 1+
[2022-08-07 08:23] LABS: ABS Lymphocytes 1.4 10^3/ul (1.0-4.8); ABS Monocytes 0.9 10^3/ul (0-0.8); ABS Neutrophils 6.9 10^3/ul (1.5-7.7); ABS Nucleated RBC 0.4 10^3/ul; Eosinophil % 0.2 %; Lymphocyte % 15.1 %; Nucleated Red Blood Cells % 4.3
[2022-08-07] MEDS: Pantoprazole VIAL 40 MG VIAL IV SCH (09:04)
[2022-08-07] MEDS: oxyCODONE SR 20 mg TAB PO SCH ×2 (09:05→13:49)
[2022-08-07] MEDS: Potassium & Sodium Phos 250 mg = 1 PACKET PO SCH (09:05)
[2022-08-07] MEDS: Calcium (OSCAL) 500 mg TAB PO SCH (09:06)
[2022-08-07] MEDS: Potassium Chlor 20 meq TAB.ER PO SCH (09:06)
[2022-08-07] MEDS: Polyethylene Glycol 3350 17 GM PACKET PO SCH (09:07)
[2022-08-07] MEDS: Fluticasone NASAL SPRAY 50MCG 16 gm SPRAY BTL BOTH NARES SCH (09:11)
[2022-08-07 09:29] VITALS: BP 111/59
[2022-08-07 18:08] LABS: Anaplasma phagocytophilum Negative (Negative); B. miyamotoi PCR, B Negative (Negative); Babesia divergens/MO-1 Negative (Negative); Babesia ducani Negative (Negative); Ehrlichia chaffeensis Negative (Negative); Ehrlichia ewingii/canis Negative (Negative); Ehrlichia muris eauclairensis Negative (Negative)
== END 2022-08-07 13:55 | disposition home or self-care (01) | DRG 308 ==
LOC: EDHOLD 09:41 → ED 09:41 → SUATTDRO 14:56 → MEDTELE 21:08 → SUATTDRO 07-29 16:15 → ICU 07-30 20:00 → MEDTELE 08-01 11:07
PROVIDERS: ADMIT Internal Medicine; ATTEND Internal Medicine

== ENCOUNTER 2022-09-20 12:57 | Inpatient (IN) ==
[2022-09-20] MEDS ORDERED: Piperacillin/Tazobac ADVAN 3.375 GM in NS 0.9% 100 ml BAG 100 ML IV ONE (14:03)
[2022-09-20 14:33] LABS: Hematocrit 22 % (42-52); Hemoglobin 7.1 g/dL (14.0-18.0); Mean Corpuscular HGB Conc 32 g/dL (31-36); Mean Corpuscular Hemoglobin 27 pg (27-31); Mean Corpuscular Volume 86 fL (80-94); Mean Platelet Volume 6.8 fL (7.4-10.4); Platelet Count 96 10^3/uL (150-450); Red Cell Distribution Width 24 % (10-15); White Blood Count 26.6 10^3/uL (3.5-10.8)
[2022-09-20 14:55] LABS: ABS Basophils 0.3 10^3/ul (0-0.2); ABS Lymphocytes 1.8 10^3/ul (1.0-4.8); ABS Monocytes 1.1 10^3/ul (0-0.8); ABS Neutrophils 23.4 10^3/ul (1.5-7.7); ABS Nucleated RBC 0.5 10^3/ul; Anisocytosis 1+; Eosinophil % 0.1 %; Lymphocyte % 6.8 %; Nucleated Red Blood Cells % 1.9; Polychromasia 1+
[2022-09-20] MEDS ORDERED: Lactated Ringers 1000 ml BAG 1,000 ML IV ONE ×3 (14:55→18:37)
[2022-09-20 15:29] LABS: Albumin 3.2 g/dL (3.2-5.2); Albumin/Globulin Ratio 1.6 (1-3); C Reactive Protein 87.77 mg/L (<8.01); Calcium 7.8 mg/dL (8.6-10.3); Potassium 4.6 mmol/L (3.5-5.0); Total Bilirubin 4.1 mg/dL (0.2-1.0); Total Protein 5.2 g/dL (6.4-8.9); eGFR CKD-EPI 36.6 (>60)
[2022-09-20 16:10] LABS: High Sensitivity Troponin 1 Hr 14 pg/mL (<20)
[2022-09-20] MEDS ORDERED: Digoxin IV 0.5 MG/2 ML AMP (0.25 MG/ML) IV SLOW PU ONE (17:30)
[2022-09-20 17:54] LABS: INR 3.03 (0.88-1.18)
[2022-09-20] MEDS ORDERED: Zosyn per Pharmacy NOTE FOLLOW UP SCH (21:00)
[2022-09-20] MEDS ORDERED: ZOSYN 3.375 GM Q8H per EXTENDED INFUSION IV SCH (22:00)
[2022-09-20] MEDS ORDERED: ZOSYN 3.375 GM x ONE DOSE over 30 miuntes IV (23:30)
[2022-09-21 01:14] LABS: Hematocrit 21 % (42-52); Hemoglobin 6.9 g/dL (14.0-18.0)
[2022-09-21] MEDS: ZOSYN 3.375 GM Q8H per EXTENDED INFUSION IV SCH ×3 (04:19→19:31)
[2022-09-21 07:08] LABS: Hematocrit 25 % (42-52); Hemoglobin 8.4 g/dL (14.0-18.0); Mean Corpuscular HGB Conc 34 g/dL (31-36); Mean Corpuscular Hemoglobin 29 pg (27-31); Mean Corpuscular Volume 85 fL (80-94); Mean Platelet Volume 6.5 fL (7.4-10.4); Platelet Count 65 10^3/uL (150-450); Red Blood Count 2.95 10^6 /uL (4.18-5.48); Red Cell Distribution Width 21 % (10-15); White Blood Count 23.8 10^3/uL (3.5-10.8)
[2022-09-21 07:39] LABS: Albumin/Globulin Ratio 1.7 (1-3); Calcium 7.2 mg/dL (8.6-10.3); Globulin 1.8 g/dL (2-4); Magnesium 2.2 mg/dL (1.9-2.7); Phosphorus 4.9 mg/dL (2.5-5.0); Potassium 4.8 mmol/L (3.5-5.0); Total Bilirubin 5.7 mg/dL (0.2-1.0); Total Protein 4.8 g/dL (6.4-8.9); eGFR CKD-EPI 29.3 (>60)
[2022-09-21 11:34] LABS: Hematocrit 25 % (42-52); Hemoglobin 8.3 g/dL (14.0-18.0)
[2022-09-21] MEDS: oxyCODONE SR 40 mg TAB PO SCH ×2 (12:01→20:14)
[2022-09-21 13:37] LABS: Urine Creatinine Concentration 83.64 mg/dL; Urine Sodium Concentration < 18 mmol/L
[2022-09-21 17:25] LABS: Hematocrit 24 % (42-52); Hemoglobin 7.9 g/dL (14.0-18.0)
[2022-09-22] MEDS: ZOSYN 3.375 GM Q8H per EXTENDED INFUSION IV SCH ×3 (03:32→21:02)
[2022-09-22 05:21] LABS: Blood Urea Nitrogen 49 mg/dL (6-24); CO2 Carbon Dioxide 19 mmol/L (22-32); Calcium 6.6 mg/dL (8.6-10.3); Chloride 92 mmol/L (101-111); Glucose 86 mg/dL (70-100); Sodium 123 mmol/L (135-145); eGFR CKD-EPI 35.1 (>60)
[2022-09-22 05:37] LABS: Anion Gap 12 mmol/L (2-11)
[2022-09-22 05:40] LABS: Hematocrit 24 % (42-52); Hemoglobin 7.8 g/dL (14.0-18.0); Mean Corpuscular HGB Conc 33 g/dL (31-36); Mean Corpuscular Hemoglobin 28 pg (27-31); Mean Corpuscular Volume 84 fL (80-94); Mean Platelet Volume 8.1 fL (7.4-10.4); Platelet Count 60 10^3/uL (150-450); Red Blood Count 2.83 10^6 /uL (4.18-5.48); Red Cell Distribution Width 21 % (10-15); White Blood Count 20.2 10^3/uL (3.5-10.8)
[2022-09-22 05:45] LABS: ABS Basophils 0.2 10^3/ul (0-0.2); ABS Lymphocytes 1.3 10^3/ul (1.0-4.8); ABS Monocytes 0.9 10^3/ul (0-0.8); ABS Neutrophils 17.8 10^3/ul (1.5-7.7); ABS Nucleated RBC 0.4 10^3/ul; Eosinophil % 0.1 %; Lymphocyte % 6.6 %; Nucleated Red Blood Cells % 1.7
[2022-09-22 05:54] LABS: Acanthocytes 1+; Anisocytosis 1+
[2022-09-22 05:55] LABS: Burr Cells 2+; Microcytosis 1+; Tear Drop Cells 1+
[2022-09-22] MEDS: oxyCODONE SR 40 mg TAB PO SCH ×3 (07:34→23:01)
[2022-09-23] MEDS: ZOSYN 3.375 GM Q8H per EXTENDED INFUSION IV SCH ×3 (03:28→20:04)
[2022-09-23] MEDS: oxyCODONE SR 40 mg TAB PO SCH ×4 (05:56→21:38)
[2022-09-23 10:36] LABS: Hematocrit 27 % (42-52); Hemoglobin 8.4 g/dL (14.0-18.0); Mean Corpuscular HGB Conc 31 g/dL (31-36); Mean Corpuscular Hemoglobin 27 pg (27-31); Mean Corpuscular Volume 87 fL (80-94); Mean Platelet Volume 7.3 fL (7.4-10.4); Platelet Count 72 10^3/uL (150-450); Red Blood Count 3.15 10^6 /uL (4.18-5.48); Red Cell Distribution Width 22 % (10-15); White Blood Count 24.9 10^3/uL (3.5-10.8)
[2022-09-23 10:58] LABS: Albumin/Globulin Ratio 1.5 (1-3); Calcium 6.9 mg/dL (8.6-10.3); Magnesium 2.2 mg/dL (1.9-2.7); Potassium 4.5 mmol/L (3.5-5.0); Total Bilirubin 6.7 mg/dL (0.2-1.0); eGFR CKD-EPI 32.8 (>60)
[2022-09-23 13:04] LABS: ABS Basophils 0.3 10^3/ul (0-0.2); ABS Lymphocytes 2.9 10^3/ul (1.0-4.8); ABS Neutrophils 20.7 10^3/ul (1.5-7.7); Eosinophil % 0.1 %; Lymphocyte % 11.7 %
[2022-09-23 13:06] LABS: Anisocytosis 2+
[2022-09-23] MEDS: NS 0.9% 1000 ml BAG 1,000 ML IV SCH (13:38)
[2022-09-23] MEDS: Senna TAB 8.6 mg TAB PO PRN (20:03)
[2022-09-24] MEDS: NS 0.9% 1000 ml BAG 1,000 ML IV SCH (03:08)
[2022-09-24] MEDS: ZOSYN 3.375 GM Q8H per EXTENDED INFUSION IV SCH ×2 (03:10→11:35)
[2022-09-24] MEDS: oxyCODONE SR 40 mg TAB PO SCH ×3 (05:43→23:09)
[2022-09-24 06:12] LABS: ABS Basophils 0.4 10^3/ul (0-0.2); ABS Eosinophils 0.1 10^3/ul (0-0.6); ABS Lymphocytes 2.9 10^3/ul (1.0-4.8); ABS Monocytes 0.9 10^3/ul (0-0.8); ABS Neutrophils 21.3 10^3/ul (1.5-7.7); Eosinophil % 0.4 %; Hematocrit 26 % (42-52); Hemoglobin 8.7 g/dL (14.0-18.0); Lymphocyte % 11.3 %; Mean Corpuscular HGB Conc 33 g/dL (31-36); Mean Corpuscular Hemoglobin 29 pg (27-31); Mean Corpuscular Volume 88 fL (80-94); Mean Platelet Volume 7.4 fL (7.4-10.4); Nucleated Red Blood Cells % 3.8; Platelet Count 68 10^3/uL (150-450); Red Blood Count 2.97 10^6 /uL (4.18-5.48); Red Cell Distribution Width 22 % (10-15); White Blood Count 25.6 10^3/uL (3.5-10.8)
[2022-09-24 07:09] LABS: Albumin/Globulin Ratio 1.6 (1-3); Globulin 1.9 g/dL (2-4); Magnesium 2.3 mg/dL (1.9-2.7); Potassium 4.7 mmol/L (3.5-5.0); Total Protein 4.9 g/dL (6.4-8.9); eGFR CKD-EPI 25.9 (>60)
[2022-09-24 07:33] LABS: Calcium 6.2 mg/dL (8.6-10.3)
[2022-09-25] MEDS: oxyCODONE SR 40 mg TAB PO SCH ×2 (06:31→15:33)
[2022-09-26] MEDS: oxyCODONE SR 40 mg TAB PO SCH ×4 (00:21→21:53)
[2022-09-26] MEDS: Morphine 2 MG/ML SYRINGE IV PRN ×2 (02:32→16:03)
[2022-09-26] MEDS: Polyethylene Glycol 3350 17 GM PACKET PO PRN (08:54)
[2022-09-26] MEDS: Senna TAB 8.6 mg TAB PO PRN (21:28)
[2022-09-27] MEDS: Morphine 2 MG/ML SYRINGE IV PRN ×3 (00:13→08:49)
[2022-09-27] MEDS: oxyCODONE SR 40 mg TAB PO SCH ×3 (06:13→21:16)
[2022-09-27] MEDS: Polyethylene Glycol 3350 17 GM PACKET PO PRN (08:47)
[2022-09-27] MEDS: Senna TAB 8.6 mg TAB PO PRN (21:16)
[2022-09-28] MEDS: Morphine 2 MG/ML SYRINGE IV PRN ×4 (02:25→16:27)
[2022-09-28] MEDS: oxyCODONE SR 40 mg TAB PO SCH ×2 (05:59→14:30)
[2022-09-28] MEDS: Calcium Carb (TUMS) 500 mg CHEW TAB PO PRN (10:21)
[2022-09-28] MEDS ORDERED: oxyCODONE SR 40 mg TAB PO SCH (15:22)
[2022-09-28] MEDS ORDERED: oxyCODONE SR 20 mg TAB PO SCH (17:00)
[2022-09-28] MEDS: oxyCODONE SR 20 mg TAB PO SCH (21:20)
[2022-09-29] MEDS: Calcium Carb (TUMS) 500 mg CHEW TAB PO PRN (00:23)
[2022-09-29] MEDS: Morphine 2 MG/ML SYRINGE IV PRN ×3 (01:09→12:06)
[2022-09-29] MEDS: oxyCODONE SR 20 mg TAB PO SCH ×3 (06:25→21:35)
[2022-09-29] MEDS ORDERED: LORazepam 2 mg VIAL 1 ml IV PUSH PRN ×2 (09:56→09:58)
[2022-09-29] MEDS ORDERED: Lorazepam PYXIS KEY PRN (09:56)
[2022-09-29] MEDS: Morphine ORAL CONCENTRATE 5 MG/0.25 ML ORAL.SYRIN SL PRN (18:19)
[2022-09-30] MEDS: Morphine ORAL CONCENTRATE 5 MG/0.25 ML ORAL.SYRIN SL PRN ×2 (02:13→09:03)
[2022-09-30] MEDS: Calcium Carb (TUMS) 500 mg CHEW TAB PO PRN (03:10)
[2022-09-30] MEDS: oxyCODONE SR 20 mg TAB PO SCH ×3 (06:26→21:16)
[2022-10-01] MEDS: oxyCODONE SR 20 mg TAB PO SCH ×2 (06:29→14:42)
[2022-10-01] MEDS: Morphine ORAL CONCENTRATE 5 MG/0.25 ML ORAL.SYRIN SL PRN ×3 (09:54→19:39)
[2022-10-01] MEDS ORDERED: LORazepam ORAL LIQ 2 MG/ML BULK BOTTLE SL PRN (19:47)
[2022-10-01] MEDS: Morphine ORAL CONCENTRATE 5 MG/0.25 ML ORAL.SYRIN SL SCH (23:06)
[2022-10-02] MEDS: Morphine ORAL CONCENTRATE 5 MG/0.25 ML ORAL.SYRIN SL SCH ×7 (03:21→23:18)
[2022-10-02 08:25] VITALS: BP 101/70
[2022-10-02] MEDS: Morphine ORAL CONCENTRATE 5 MG/0.25 ML ORAL.SYRIN SL PRN ×2 (15:02→17:58)
[2022-10-02] MEDS ORDERED: Magnesium Hydroxide LIQ 30 ML UDC PO PRN (16:01)
[2022-10-02] MEDS: Polyethylene Glycol 3350 17 GM PACKET PO PRN (21:28)
[2022-10-03] MEDS: Morphine ORAL CONCENTRATE 5 MG/0.25 ML ORAL.SYRIN SL SCH ×2 (05:27→07:38)
[2022-10-03] MEDS: oxyCODONE SR 20 mg TAB PO SCH ×2 (11:00→17:30)
[2022-10-03 17:04] LABS: Rapid COVID-19 Molecular Undetected (Undetected)
[2022-10-04] MEDS: oxyCODONE SR 20 mg TAB PO SCH (02:47)
[2022-10-04] MEDS: Morphine ORAL CONCENTRATE 5 MG/0.25 ML ORAL.SYRIN SL PRN (07:50)
== END 2022-10-04 09:40 | DRG 872 ==
LOC: ED 12:57 → SUATTDRO 20:13 → EDHOLD 20:13 → ICU 21:35 → MED 09-22 22:16
PROVIDERS: ADMIT Internal Medicine; ATTEND Hospitalist